=== PATIENT | female | born 1960 | race Caucasian/White ===

== ENCOUNTER 2017-04-17 13:53 | Emergency (ER) | payer MEDICARE, MEDICAID ==
[2017-04-17] MEDS ORDERED: IBUPROFEN 800 MG TABLET PO ONE (14:58)
[2017-04-17] MEDS ORDERED: CEPHALEXIN 500 MG CAPSULE PO ONE (14:59)
[2017-04-17] MEDS ORDERED: CIPROFLOXACIN HCL/DEXAMETH OTIC DROP 7.5 ML AU ONE (14:59)
--- NOTE | 2017-04-17 15:04 | ER Document Report ---
HPI - HPI Patient complains to provider of: ear pain, foot pain Pain Level: 1 Context: Patient is a 57-year-old female who presents emergency department with a chief complaint of bilateral ear congestion with right sided ear pain. She states this started on Wednesday of this week. She denies any fevers, chills, sharp stabbing pain, drainage, bleeding. She admits to having sinus congestion and nonproductive cough. She denies any loss of hearing but states it is difficult here because she feels like her ears are clogged. She denies any history of significant cerumen impaction requiring frequent irrigation. She states that she did utilize [id number] earwax treatment without any significant improvement. Her other complaint today is regarding her left foot. She admits to history of venous stasis and follows with Dr. Gomez she admits to redness on the top of her foot with pain with walking. She has been taking Tylenol and Motrin at home. States that she was supposed to follow-up with Dr. Gomez but has not had transportation to get there. Otherwise she denies any purulent drainage, pain at the bottom of her foot. Patient does not have primary care in the area. - EENT EENT: REPORTS: Eye problems - watery eyes - RESPIRATORY Respiratory: REPORTS: Coughing Past Medical History - Social History Smoking Status: Never Smoker Chew tobacco use (# tins/day): No Frequency of alcohol use: None Drug Abuse: None Family History: Reviewed & Not Pertinent Patient has suicidal ideation: No Patient has homicidal ideation: No - Past Medical History Cardiac Medical History: Reports: Hx Atrial Fibrillation Neurological Medical History: Reports: Hx Seizures Renal/ Medical History: Denies: Hx Peritoneal Dialysis Past Surgical History: Reports: Hx Appendectomy, Hx Hysterectomy, Hx Tubal Ligation - Immunizations Hx Diphtheria, Pertussis, Tetanus Vaccination: Yes Vertical Provider Document - CONSTITUTIONAL Agree With Documented VS: Yes Notes: PHYSICAL EXAM GENERAL: Alert, interacts well. HEENT: NCAT, pale conjunctiva, extraocular movements intact, pupils PERRL. external ear normal, no evidence of external auditory canal blood, cerumen impaction, but presence of bilateral external canal swelling and purulent drainage, TM intact without evidence of effusion, bulging, injection, MMM, Uvula midline. Airway patent. No evidence of tonsillar enlargement, peritonsillar abscess, retropharyngeal abscess. LUNGS: Clear to auscultation bilaterally, no wheezes, rales, or rhonchi. No respiratory distress. HEART: Regular rate and rhythm. No murmurs, gallops, or rubs. ABDOMEN: Soft, nondistended, nontender. No guarding, rebound, or rigidity.. Bowel sounds present in all 4 quadrants. EXTREMITIES: Moves all 4 extremities spontaneously. No edema, radial and dorsalis pedis pulses 2/4 bilaterally. No cyanosis. NEUROLOGICAL: Alert and oriented x4. Normal speech. PSYCH: Normal affect, normal mood. SKIN: Warm, dry, normal turgor. Left lower extremity with mild pitting edema and erythema overlying the volar surface of the left foot without purulent drainage, mild tenderness to palpation - INFECTION CONTROL TRAVEL OUTSIDE OF THE [place] IN LAST 30 DAYS: No - RESPIRATORY O2 Sat by Pulse Oximetry: 97 Course - Re-evaluation Re-evalutation: 04/17/17 15:59 Patient is a 57-year-old female is hemodynamically stable, no acute distress and afebrile. Her chief complaint is consistent with bilateral otitis externa without evidence of tympanic membrane perforation. Will treat topically with Ciprodex and instruction to follow-up with ear nose and throat this week. Regarding her foot x-ray does not show any evidence of underlying developing osteomyelitis. Will treat cellulitis with oral keflex and instruction to follow -up with Dr. Gomez this week. Patient and daughter present at the bedside expresses understanding, all questions were answered, and everyone agreeable with plan. - Vital Signs Vital signs: Temp Pulse Resp BP Pulse Ox 97.6 F 60 16 139/77 H 97 04/17/17 14:12 04/17/17 14:12 04/17/17 14:12 04/17/17 14:12 04/17/17 14:12 Discharge - Discharge Clinical Impression: Venous stasis dermatitis of left lower extremity Otitis externa Qualifiers: Otitis externa type: unspecified type Chronicity: acute Laterality: bilateral Qualified Code(s): H60.503 - Unspecified acute noninfective otitis externa, bilateral Cellulitis Qualifiers: Site of cellulitis: extremity Site of cellulitis of extremity: lower extremity Laterality: left Qualified Code(s): L03.116 - Cellulitis of left lower limb Condition: Good Disposition: HOME, SELF-CARE Instructions: Using Ear Drops with a Wick ([facility]), Acetaminophen, Otitis Externa ([facility]), Cellulitis ([facility]) Additional Instructions: -Please take the Keflex as directed and complete the course, this is for your foot and concern for infection of the skin. -Please use the drops as directed, 3 drops to both ears twice a day for 7 days -Follow up with Dr. Cheney on Wednesday and mention that the ear emilie are in. if they fall out before you see him, its okay. Continue to use the drops as directed. -Follow up with Dr Gomez this week regarding your foot Prescriptions: Cephalexin Monohydrate [Keflex 500 mg Capsule] 500 mg PO BID 5 Days capsule Referrals: ADRIEN CHENEY DO [ASSOCIATE] - 04/19/17 (Ear nose and throat doctor) JANICE MORENO MD [COMMUNITY BASED STAFF] - Follow up in 1 week BREONNA GOMEZ MD [ACTIVE STAFF] - Follow up in 3-5 days
--- NOTE | 2017-04-17 16:12 | RADIOLOGY REPORT (SQ) ---
EXAM DESCRIPTION: FOOT LEFT 2 VIEWS COMPLETED DATE/TIME: 04/17/2017 4:00 pm REASON FOR STUDY: h/o venous stasis w/ tenderness, red and swelling COMPARISON: None. NUMBER OF VIEWS: Two views. TECHNIQUE: AP and lateral radiographic images acquired of the left foot. LIMITATIONS: None. FINDINGS: MINERALIZATION: Osteopenia. BONES: No acute fracture or dislocation. No worrisome bone lesions. Calcaneal enthesopathy is prese nt. JOINTS: No effusions. SOFT TISSUES: No soft tissue swelling. No foreign body. OTHER: No other significant finding. IMPRESSION: Osteopenia and calcaneal enthesopathy. No acute findings. TECHNICAL DOCUMENTATION: JOB ID: [id number] [employer]- All Rights Reserved Reading location - IP/workstation name: [email or web address]
[2017-04-17 17:04] VITALS: BP 112/66
== END 2017-04-17 17:04 | disposition home or self-care (01) ==
LOC: ER 13:53
DX: H60.503 Unspecified acute noninfective otitis externa, bilateral (principal); H92.01 Otalgia, right ear; R09.81 Nasal congestion; R05 Cough; I87.2 Venous insufficiency (chronic) (peripheral); L03.116 Cellulitis of left lower limb
CPT/HCPCS: 99283; 73620; A9270 ×2; J3490

== ENCOUNTER 2017-04-23 11:04 | Emergency (ER) | payer MEDICARE, MEDICAID ==
--- NOTE | 2017-04-23 12:21 | ER Document Report ---
HPI - HPI Patient complains to provider of: Ear infection Onset: Last week Pain Level: Denies Context: Patient states she was recently treated for otitis externa and had earwax placed in bilateral ears. Patient states that she is almost done with the medication and the emilie have not fallen out. Patient is here to have the earwax removed. Patient denies any ear pain. Associated Symptoms: denies: Fever Exacerbated by: Denies Relieved by: Denies Similar symptoms previously: No Recently seen / treated by doctor: Yes - ROS ROS below otherwise negative: Yes Systems Reviewed and Negative: Yes All other systems reviewed and negative - EENT EENT: REPORTS: Ear Pain - Ear drainage - DERM Skin Color: Normal Skin Problems: None Past Medical History - General Information source: Patient - Social History Smoking Status: Never Smoker Chew tobacco use (# tins/day): No Frequency of alcohol use: None Drug Abuse: None Lives with: Family Family History: Reviewed & Not Pertinent Patient has suicidal ideation: No Patient has homicidal ideation: No - Past Medical History Cardiac Medical History: Reports: Hx Atrial Fibrillation, Hx Hypercholesterolemia Neurological Medical History: Reports: Hx Seizures Renal/ Medical History: Denies: Hx Peritoneal Dialysis Past Surgical History: Reports: Hx Appendectomy, Hx Cardiac Surgery - pacemaker , Hx Hysterectomy, Hx Tubal Ligation - Immunizations Hx Diphtheria, Pertussis, Tetanus Vaccination: Yes Vertical Provider Document - CONSTITUTIONAL Agree With Documented VS: Yes Exam Limitations: No Limitations General Appearance: WD/WN, No Apparent Distress - INFECTION CONTROL TRAVEL OUTSIDE OF THE [place] IN LAST 30 DAYS: No - HEENT HEENT: Atraumatic, Normocephalic. negative: Pharyngeal Exudate, Pharyngeal Tenderness, Pharyngeal Erythema Notes: Discharge overlying bilateral TM, hearing normal to left ear. No mastoid tenderness or swelling. - NECK Neck: Normal Inspection, Supple - RESPIRATORY Respiratory: Breath Sounds Normal, No Respiratory Distress O2 Sat by Pulse Oximetry: 95 - CARDIOVASCULAR Cardiovascular: Regular Rate, Regular Rhythm - BACK Back: Normal Inspection - MUSCULOSKELETAL/EXTREMETIES Musculoskeletal/Extremeties: MAEW - NEURO Level of Consciousness: Awake, Alert, Appropriate - DERM Integumentary: Warm, Dry Course - Re-evaluation Re-evalutation: 04/23/17 12:19 Ear emilie removed from bilateral ears. Patient encouraged to follow-up with ENT doctor for further evaluation. Patient still has 2 more days left of antibiotic eardrops. - Vital Signs Vital signs: Temp Pulse Resp BP Pulse Ox 98.5 F 60 16 129/68 H 95 04/23/17 11:14 04/23/17 11:14 04/23/17 11:14 04/23/17 11:14 04/23/17 11:14 Discharge - Discharge Clinical Impression: encounter for ear wick removal Condition: Stable Disposition: HOME, SELF-CARE Instructions: Otitis Externa ([facility]) Additional Instructions: Return immediately for any new or worsening symptoms Followup with your primary care provider, call tomorrow to make a followup appointment Follow-up with an ear nose and throat doctor this week for recheck Finish your antibiotics as previously prescribed Referrals: BETTY,NO [Primary Care Provider] - Follow up as needed [facility] [Provider Group] - Follow up as needed [facility] [Provider Group] - Follow up as needed [facility] [Provider Group] - Follow up in 3-5 days
[2017-04-23 12:44] VITALS: BP 130/67
== END 2017-04-23 12:42 | disposition home or self-care (01) ==
LOC: ER 11:04
DX: T16.2XXA Foreign body in left ear, initial encounter (principal); T16.1XXA Foreign body in right ear, initial encounter; H60.93 Unspecified otitis externa, bilateral; I48.91 Unspecified atrial fibrillation; E78.00 Pure hypercholesterolemia, unspecified; X58.XXXA Exposure to other specified factors, initial encounter
CPT/HCPCS: 99282

== ENCOUNTER 2017-04-29 16:17 | Emergency (ER) | payer MEDICARE, MEDICAID ==
--- NOTE | 2017-04-29 16:43 | ER Document Report ---
ED Animal Bite - General Chief Complaint: Dog Bite Stated Complaint: DOG BITE Time Seen by Provider: 04/29/17 16:27 Mode of Arrival: Ambulatory Information source: Patient, Relative TRAVEL OUTSIDE OF THE [place] IN LAST 30 DAYS: No - HPI Patient complains to provider of: right forearm, right index abrasions Severity of injury: Bitten Onset: Just prior to arrival Quality of pain: Achy Pain Level: 2 Severity: Mild Context of attack: Other Summary of what happened: pacobull she has watched for 4 years grabbed her smaller dog on the cough and pt went to break it up and the dog bit at pt. Type of animal: Dog Appearance of animal: Appeared well Animal's immunizations: Not immunized - but has been in their household for 4 years w/o issues. Notes: Tetanus is reported to be up-to-date within the last year. 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 Patient states that her son is coming to picking supervisor the dog and they are going to monitor it for the next 10 days. Daughter is a director of veterans affairs who is also with mother at the visit today. Denies any headache, fever, neck pain, URI, sore throat, chest pain, palpitations, syncope, cough, shortness of breath, wheeze, dyspnea, abdominal pain, nausea/vomiting/diarrhea, urinary retention, dysuria, hematuria, loss of control of bowel or bladder, numbness/tingling, saddle anesthesia, muscle paralysis/weakness, or rash. - Related Data Allergies/Adverse Reactions: morphine Allergy (Mild, Verified 04/29/17 16:18) Hives carbamazepine [From Tegretol] Allergy (Verified 04/29/17 16:18) ibuprofen [From Motrin] Allergy (Verified 04/29/17 16:18) sulfamethoxazole [From Bactrim] Allergy (Verified 04/29/17 16:18) trimethoprim [From Bactrim] Allergy (Verified 04/29/17 16:18) Past Medical History - Social History Smoking Status: Unknown if Ever Smoked Family History: Reviewed & Not Pertinent - Past Medical History Cardiac Medical History: Reports: Hx Atrial Fibrillation, Hx Hypercholesterolemia Neurological Medical History: Reports: Hx Seizures Renal/ Medical History: Denies: Hx Peritoneal Dialysis Past Surgical History: Reports: Hx Appendectomy, Hx Cardiac Surgery - pacemaker , Hx Hysterectomy, Hx Tubal Ligation - Immunizations Hx Diphtheria, Pertussis, Tetanus Vaccination: Yes Review of Systems - Review of Systems -: Yes All other systems reviewed and negative Physical Exam - Vital signs Vitals: Temp Pulse Resp BP Pulse Ox 97.7 F 60 18 144/79 H 96 04/29/17 16:22 04/29/17 16:22 04/29/17 16:22 04/29/17 16:22 04/29/17 16:22 - Notes Notes: PHYSICAL EXAMINATION: GENERAL: Well-appearing, well-nourished and in no acute distress. A&Ox4 LUNGS: Breath sounds clear to auscultation bilaterally and equal. No wheezes rales or rhonchi. HEART: Regular rate and rhythm without murmurs, rubs, gallops. Musculoskeletal: Rt forearm/hand: FROM to passive/active. Strength 5+/5. N/V intact distal. + mild tenderness to the distal right index finger. + mild tenderness mid forearm. Extremities: No cyanosis, clubbing, or edema b/l. Peripheral pulses 2+. Capillary refill less than 3 seconds. NEUROLOGICAL: Cranial nerves grossly intact. Normal speech, normal gait. Normal sensory, motor exams PSYCH: Normal mood, normal affect. SKIN: 3 small 0.25cm abrasions noted to the skin without deep puncture of the dorsal forearm. + small 0.2cm abrasion to the distoposterior right index. No obvious foreign body. + ecchymosis to the posterior forearm. Course - Re-evaluation Re-evalutation: 04/29/17 17:15 Patient is an afebrile, well-hydrated, 57-year-old female who presents to the ED with superficial dog bite abrasions. Vitals are stable. PE is otherwise unremarkable for any neurovascular compromise, obvious tendon/ligament rupture, obvious fracture/dislocation, cyanosis, or septic joint. X-ray was unremarkable for any acute pathology. Wound was thoroughly irrigated and cleansed and a wound dressing placed. Wound instructions reviewed. Tetanus is up-to-date. Thoroughly reviewed the risks and benefits as well as the potential cost of the rabies vaccination protocol. Patient's daughter is a director of veterans affairs and states that they would prefer to monitor for 10 days the dog's behavior rather than getting/starting the rabies protocol. Patient and daughter are aware that patient needs to return immediately if any other acute changes or changes in the dog's health. I will send her home with a prescription for Augmentin to take as directed. Conservative measures otherwise for symptoms. Recheck with your PCM in 3-5 days. Return to the ED with any worsening/concerning symptoms otherwise reviewed discharge. Patient & daughter in agreement. - Vital Signs Vital signs: Temp Pulse Resp BP Pulse Ox 97.7 F 60 18 144/79 H 96 04/29/17 16:22 04/29/17 16:22 04/29/17 16:22 04/29/17 16:22 04/29/17 16:22 Discharge - Discharge Clinical Impression: Dog bite Qualifiers: Encounter type: initial encounter Qualified Code(s): W54.0XXA - Bitten by dog, initial encounter Condition: Stable Disposition: HOME, SELF-CARE Additional Instructions: Keep the skin clean Wash with soap and water Tylenol/ibuprofen if needed Triple antibiotic ointment daily Take medication as directed Monitor for any worsening symptoms Epsom salt soaks may help Monitor/isolate the dog for 10 days and watch closely for any health changes. Get the dog's vaccines up to date when able. Recheck with your PCM in 3-5 days Return to the ED with any worsening symptoms and/or development of fever, headache, chest pain, palpitations, syncope, shortness of breath, trouble breathing, abdominal pain, n/v/d, abscess, purulent discharge, red streaks, worsening swelling, or other worsening symptoms that are concerning to you. Prescriptions: Amox Tr/Potassium Clavulanate [Augmentin 875-125 Tablet] 1 tab PO BID 10 Days # 20 tablet Forms: Elevated Blood Pressure Referrals: [facility] [Provider Group] - Follow up as needed [facility] [Provider Group] - Follow up as needed
--- NOTE | 2017-04-29 17:08 | RADIOLOGY REPORT (SQ) ---
EXAM DESCRIPTION: FOREARM RIGHT COMPLETED DATE/TIME: 04/29/2017 4:49 pm REASON FOR STUDY: dog bite COMPARISON: None. NUMBER OF VIEWS: Two views. TECHNIQUE: Two radiographic images acquired of the right forearm, including elbow and wrist in at le ast one projection. LIMITATIONS: None. FINDINGS: MINERALIZATION: Normal. BONES: No acute fracture. No worrisome bone lesions. SOFT TISSUES: No obvious swelling or foreign body. OTHER: No other significant finding. IMPRESSION: NEGATIVE STUDY OF THE RIGHT FOREARM. NO RADIOGRAPHIC EVIDENCE OF ACUTE INJURY. TECHNICAL DOCUMENTATION: JOB ID: [id number] [employer]- All Rights Reserved Reading location - IP/workstation name: [email or web address] [id number]
--- NOTE | 2017-04-29 17:12 | RADIOLOGY REPORT (SQ) ---
EXAM DESCRIPTION: HAND RIGHT 3 VIEWS COMPLETED DATE/TIME: 04/29/2017 4:49 pm REASON FOR STUDY: dog bite COMPARISON: Right forearm two views same date EXAM PARAMETERS: NUMBER OF VIEWS: Three views. TECHNIQUE: AP, lateral and oblique radiographic images acquired of the right hand. LIMITATIONS: None. FINDINGS: MINERALIZATION: Normal. BONES: No acute fracture or dislocation. No worrisome bone lesions. 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 SOFT TISSUES: No soft tissue swelling. No foreign body. OTHER: No other significant finding. IMPRESSION: NEGATIVE STUDY OF THE RIGHT HAND. NO RADIOGRAPHIC EVIDENCE OF ACUTE INJURY. TECHNICAL DOCUMENTATION: JOB ID: [id number] [employer]- All Rights Reserved Reading location - IP/workstation name: [email or web address]
[2017-04-29 17:39] VITALS: BP 117/74
== END 2017-04-29 17:39 | disposition home or self-care (01) ==
LOC: ER 16:17
DX: S60.470A Other superficial bite of right index finger, initial encounter (principal); S50.871A Other superficial bite of right forearm, initial encounter; W54.0XXA Bitten by dog, initial encounter; Y93.K9 Activity, other involving animal care; Z88.5 Allergy status to narcotic agent; Z88.6 Allergy status to analgesic agent; Z88.1 Allergy status to other antibiotic agents
CPT/HCPCS: 99283

== ENCOUNTER 2017-05-17 22:57 | Emergency (ER) | payer MEDICARE, MEDICAID ==
[2017-05-18 01:24] LABS: ABSOLUTE BASOPHILS # (AUTO) 0.1 10^3/uL (0.0-0.2); ABSOLUTE LYMPHOCYTES (AUTO) 1.2 10^3/uL (0.5-4.7); ABSOLUTE MONOCYTES (AUTO) 0.6 10^3/uL (0.1-1.4); ABSOLUTE NEUT (AUTO) 8.2 10^3/uL (1.7-8.2); BASOPHILS % (AUTO) 0.6 % (0-2); EOSINOPHILS % (AUTO) 0.1 % (0-6); HEMATOCRIT 42.9 % (36.0-47.0); HEMOGLOBIN 14.6 g/dL (12.0-15.5); LYMPHOCYTES % (AUTO) 11.9 % (13-45); MEAN CORPUSCULAR HEMOGLOBIN 28.7 pg (27.0-33.4); MEAN CORPUSCULAR HGB CONC 33.9 g/dL (32.0-36.0); MEAN CORPUSCULAR VOLUME 85 fl (80-97); MONOCYTES % (AUTO) 5.8 % (3-13); PLATELET COUNT 122 10^3/uL (150-450); RED BLOOD COUNT 5.07 10^6/uL (3.72-5.28); RED CELL DISTRIBUTION WIDTH 14.5 % (11.5-14.0); SEGMENTED NEUTROPHILS % (AUTO) 81.6 % (42-78); TOTAL CELLS COUNTED % (AUTO) 100 %
[2017-05-18 01:26] LABS: APPEARANCE,URINE CLOUDY; BILIRUBIN,URINE NEGATIVE (NEGATIVE); COLOR,URINE YELLOW; GLUCOSE, URINE NEGATIVE (NEGATIVE); KETONES,URINE NEGATIVE (NEGATIVE); LEUKOCYTE ESTERASE,URINE LARGE (NEGATIVE); NITRITE,URINE NEGATIVE (NEGATIVE); PROTEIN,URINE 100 mg/dL (NEGATIVE); URINE SPECIFIC GRAVITY 1.016; UROBILINOGEN,URINE NEGATIVE mg/dL (<2.0)
[2017-05-18 01:42] LABS: ALANINE AMINOTRANSFERASE 28 U/L (9-52); ALKALINE PHOSPHATASE 89 U/L (38-126); ANION GAP 6 (5-19); ASPARTATE AMINO TRANSFERASE 18 U/L (14-36); BILIRUBIN,DIRECT 0.3 mg/dL (0.0-0.4); BILIRUBIN,TOTAL 0.5 mg/dL (0.2-1.3); BLOOD UREA NITROGEN 12 mg/dL (7-20); CALCIUM 9.7 mg/dL (8.4-10.2); CARBON DIOXIDE 27 mmol/L (22-30); CHLORIDE 108 mmol/L (98-107); GLUCOSE 115 mg/dL (75-110); LIPASE 37.8 U/L (23-300); POTASSIUM 4.2 mmol/L (3.6-5.0); SODIUM 140.8 mmol/L (137-145); TOTAL PROTEIN 6.5 g/dL (6.3-8.2)
[2017-05-18] MEDS ORDERED: CEPHALEXIN 500 MG CAPSULE PO ONE (01:44)
--- NOTE | 2017-05-18 02:07 | ER Document Report ---
ED General - General Chief Complaint: Abdominal Pain Stated Complaint: CRAMPING Time Seen by Provider: 05/18/17 01:00 Notes: Patient is a 57-year-old female with medical history as recorded who presents with 2 days of lower abdominal cramping, dysuria, urinary frequency and bilateral flank pain. She states that she is also felt somewhat fatigued but denies any fever, vomiting or body aches. She states this feels somewhat similar to when she has had urinary tract infections in the past. She has not noted that he seems to improve or worsen her pain. She does describe the pain as a cramping, aching pain to the affected areas. Pain is overall been unchanged since onset. She has not seen her primary care doctor regarding today 's concerns. TRAVEL OUTSIDE OF THE [place] IN LAST 30 DAYS: No - Related Data Allergies/Adverse Reactions: morphine Allergy (Mild, Verified 04/29/17 16:18) Hives carbamazepine [From Tegretol] Allergy (Verified 04/29/17 16:18) ibuprofen [From Motrin] Allergy (Verified 04/29/17 16:18) sulfamethoxazole [From Bactrim] Allergy (Verified 04/29/17 16:18) trimethoprim [From Bactrim] Allergy (Verified 04/29/17 16:18) Past Medical History - General Information source: Patient - Social History Smoking Status: Never Smoker Frequency of alcohol use: None Drug Abuse: None Lives with: Alone Family History: Reviewed & Not Pertinent - Past Medical History Cardiac Medical History: Reports: Hx Atrial Fibrillation, Hx Hypercholesterolemia Neurological Medical History: Reports: Hx Seizures Renal/ Medical History: Denies: Hx Peritoneal Dialysis Past Surgical History: Reports: Hx Appendectomy, Hx Cardiac Surgery - pacemaker , Hx Hysterectomy, Hx Tubal Ligation - Immunizations Hx Diphtheria, Pertussis, Tetanus Vaccination: Yes Review of Systems - Review of Systems Notes: Constitutional: Negative for fever. HENT: Negative for sore throat. Eyes: Negative for visual changes. Cardiovascular: Negative for chest pain. Respiratory: Negative for shortness of breath. Gastrointestinal: Positive for abdominal pain Genitourinary: Positive for dysuria. Musculoskeletal: Negative for back pain. Skin: Negative for rash. Neurological: Negative for headaches, weakness or numbness. 10 point ROS negative except as marked above and in HPI. Physical Exam - Vital signs Vitals: Temp Pulse Resp BP Pulse Ox 98.6 F 61 18 140/74 H 96 05/17/17 22:57 05/17/17 22:57 05/17/17 22:57 05/17/17 22:57 05/17/17 22:57 Interpretation: Normal Notes: PHYSICAL EXAMINATION: GENERAL: Well-appearing, well-nourished and in no acute distress. HEAD: Atraumatic, normocephalic. EYES: Pupils equal round and reactive to light, extraocular movements intact, sclera anicteric, conjunctiva are normal. ENT: nares patent, oropharynx clear without exudates. Moist mucous membranes. NECK: Normal range of motion, supple without lymphadenopathy LUNGS: Breath sounds clear to auscultation bilaterally and equal. No wheezes rales or rhonchi. HEART: Regular rate and rhythm without murmurs ABDOMEN: Soft, mild suprapubic abdominal tenderness, bilateral CVA tenderness, no other localized areas of tenderness. Normoactive bowel sounds. No guarding , no rebound. No masses appreciated. EXTREMITIES: Normal range of motion, no pitting or edema. No cyanosis. NEUROLOGICAL: No focal neurological deficits. Moves all extremities spontaneously and on command. PSYCH: Normal mood, normal affect. SKIN: Warm, Dry, normal turgor, no rashes or lesions noted. Course - Re-evaluation Re-evalutation: 05/18/17 02:06 Presentation is most consistent with acute pyelonephritis. Laboratories do demonstrate a large amount of white blood cells in the urine as well as bacteria. CVA tenderness is present on exam. The remainder laboratories are relatively unremarkable without evidence of renal dysfunction. I do not suspect an acute appendicitis, biliary pathology, pancreatitis, intra-abdominal abscess, or tubo-ovarian abscess based on history and examination. Patient is able to tolerate oral intake without difficulty. Will be discharged home on 7 day course of cephalexin. A urine culture has been sent. Strict return precautions and follow-up recommendations have been discussed at length. - Vital Signs Vital signs: Temp Pulse Resp BP Pulse Ox 98.6 F 55 L 16 136/70 H 97 05/17/17 22:57 05/18/17 02:24 05/18/17 02:24 05/18/17 02:24 05/18/17 02:24 - Laboratory Result Diagrams: 05/18/17 01:10 05/18/17 01:10 Laboratory results interpreted by me: 04/02/18 04/03/18 04/03/18 23:16 01:10 01:10 RDW 14.5 H Plt Count 122 L Seg Neutrophils % 81.6 H Lymphocytes % 11.9 L Chloride 108 H Glucose 115 H Urine Protein 100 H Urine Blood MODERATE H Ur Leukocyte Esterase LARGE H Discharge - Discharge Clinical Impression: Pyelonephritis Condition: Good Disposition: HOME, SELF-CARE Additional Instructions: You have been diagnosed with a condition called pyelonephritis which is an infection involving your kidneys and bladder. You have been given a dose of antibiotics here in the emergency department to help begin to treat this infection. Your also being sent home on antibiotics. Please start taking these later on today when you fill the prescription. Complete the course even if you feel better. Please return if you have persistent vomiting, pass out, have worsening pain, become unable to tolerate fluids, or have any other symptoms that are concerning to you. Please follow-up with your primary care physician in the next 24-48 hours. Prescriptions: Cephalexin Monohydrate [Keflex 500 mg Capsule] 500 mg PO Q6H 7 Days capsule Referrals: ADALID JAMIL MD [Primary Care Provider] - Follow up in 3-5 days
[2017-05-18 02:26] VITALS: BP 136/70
== END 2017-05-18 02:23 | disposition home or self-care (01) ==
LOC: ER 22:57
DX: N12 Tubulo-interstitial nephritis, not specified as acute or chronic (principal); R53.83 Other fatigue; Z88.5 Allergy status to narcotic agent; Z88.6 Allergy status to analgesic agent; Z88.1 Allergy status to other antibiotic agents
CPT/HCPCS: 36415; 80053; 81001; 83690; 85025; 87086; 99284

== ENCOUNTER → 2017-05-27 | Outpatient (CLI) | payer MEDICARE, MEDICAID ==
--- NOTE | 2017-05-27 10:11 | WOMENS IMAGING REPORT ---
EXAM DESCRIPTION: BONE DENSITY HIP/SPINE COMPLETED DATE/TIME: 05/27/2017 8:37 am REASON FOR STUDY: OSTEOPOROSIS Z12.31 ENCNTR SCREEN MAMMOGRAM FOR MALIGNANT NEOPLASM OF JARON M81.0 AGE-RELATED OSTEOPOROSIS W/O CURRENT PATHOLOGICAL FRAC COMPARISON: None. TECHNIQUE: Dual-Energy X-ray Absorptiometry (DEXA) of the AP Spine and Hip. LIMITATIONS: None. FINDINGS: LUMBAR SPINE: The bone mineral density (BMD) measured from L1-L4 in the AP projection correlates with a T-score of 0.3, which is normal as defined by the World Health Organization. HIP: The bone mineral density (BMD) measured in the left hip correlates with a T-score of 0.3, which is no rmal as defined by the World Health Organization. IMPRESSION: 1. LUMBAR SPINE: Normal 2. HIP: Normal COMMENT: The World Health Organization defines low BMD as follows: T-score: Normal: Greater than -1.0 Osteopenia: Between -1.0 and -2.5 Osteoporosis: Less than -2.5 without fractures Established osteoporosis: Less than -2.5 with fractures In general, you may wish to consider: Diagnosis Treatment Follow-up DEXA Normal BMD Prevention 2-3 years Osteopenia Prevention/Therapy 1-2 years Osteoporosis Therapy Yearly TECHNICAL DOCUMENTATION: JOB ID: [id number] [employer]- All Rights Reserved Reading location - IP/workstation name: [email or web address]
--- NOTE | 2017-05-28 12:33 | WOMENS IMAGING REPORT ---
EXAM DESCRIPTION: 3D SCREENING MAMMO BILAT COMPLETED DATE/TIME: 05/27/2017 8:37 am REASON FOR STUDY: SCREENING MAMMO Z12.31 ENCNTR SCREEN MAMMOGRAM FOR MALIGNANT NEOPLASM OF JARON M81. 0 AGE-RELATED OSTEOPOROSIS W/O CURRENT PATHOLOGICAL FRAC COMPARISON: Multiple since 2011 TECHNIQUE: Standard craniocaudal and mediolateral oblique views of each breast recorded using digita l acquisition and breast tomosynthesis. LIMITATIONS: None. FINDINGS: No masses, calcifications or architectural distortion. No areas of suspicion. Read with the assistance of CAD. .[facility] - R2 Cenova Version 1.3 .[facility] - R2 Cenova Version 1.3 .[facility] - R2 Cenova Version 2.4 .[facility] - R2 Cenova Version 2.4 .[facility] - R2 Director Of Blood Version 9.2 IMPRESSION: NORMAL MAMMOGRAM. BIRADS 1. BREAST DENSITY: c. The breasts are heterogeneously dense, which may obscure small masses. BIRAD: 1 NEGATIVE RECOMMENDATION: ROUTINE SCREENING Please continue bilateral screening tomosynthesis in May 2018 COMMENT: The patient has been notified of the results by letter per SA requirements. Additional no tification policies are in place for contacting patient with suspicious or incomplete findings. Quality ID #225: The [employer] recommends an annual screening mammogram for women aged 40 years or over. This facility utilizes a reminder system to ensure that all patients receive reminder letters, and/or direct phone calls for appointments. This includes reminders for routine scr eening mammograms, diagnostic mammograms, or other Breast Imaging Interventions when appropriate. Th is patient will be placed in the appropriate reminder system. The [employer] (ACR) has developed recommendations for screening MRI of the breast s in certain patient populations, to be used in conjunction with mammography. Breast MRI surveillanc e may be appropriate for women with more than 20% lifetime risk of developing breast cancer as deter mined by genetic testing, significant family history of the disease, or history of mantle radiation f or Hodgkins Disease. ACR Practice Guidelines 2008. DBT Technology DBT is a type of tomographic mammography. With conventional mammography, overlapping breast tissue ma y make lesions difficult to detect, even with good compression. DBT uses an x-ray tube that rotates a round the breast, taking images at different angles. These images are then combined to create thin sl ices of the breast that the radiologist can view as a 3D reconstruction. The [employer] unit can perform full-field digital mammograms (2D imaging); or DBT (3D imaging); or both, in a combination mode that quickly performs both the mammogram and the tomosynthesis scan while the breast is still compressed. PQRS 6045F: Fluoroscopic imaging is not utilized for breast tomosynthesis. TECHNICAL DOCUMENTATION: FINDING NUMBER: (1) ASSESSMENT: (1) JOB ID: [id number] [employer]- All Rights Reserved Reading location - IP/workstation name: [email or web address]-[email or web address]
== END ==
LOC: WI 07:39
PROVIDERS: ATTEND Family Medicine
DX: Z12.31 Encounter for screening mammogram for malignant neoplasm of breast (principal); M81.0 Age-related osteoporosis without current pathological fracture
CPT/HCPCS: 77063; 77067; 77080

== ENCOUNTER → 2017-06-15 | Outpatient (CLI) | payer MEDICARE, MEDICAID ==
--- NOTE | 2017-06-17 08:02 | EEG PRO FEE REPORT ---
EEG INTERPRETATION PATIENT NAME: JUSTICE BENDER ROOM#: ORDER#: [id number] DATE OF STUDY: 06/15/2017 : 1960 REFERRING MD: ARNIE MARTINEZ M.D. DIAGNOSIS: Epilepsy REPORT The background activity of this patient is slightly slow at 6-7 Hz for the most part but there is associated muscle artifact belying the fact the patient is at drowsy or asleep. No hyperventilation elicits moderate build up and there are no further focal slowing its just bilaterally symmetrically 5-6 Hz theta particularly posteriorly anteriorly there is a lot more motion artifact. No EKG artifact is seen or amplitude asymmetry or ictal discharges. IMPRESSION Slightly slow EEG indicative of widespread cerebral dysfunction such as from a toxic or metabolic or other cerebral dysfunction. INTERPRETING PHYSICIAN: ESTEFANY SOLORIO M.D. /: MTEFFT TT: [id number] ID: [id number] /: [id number] TD: [id number] JOB: [id number] cc:Scott VIERA M.D. >
== END ==
LOC: NEURO 11:54
PROVIDERS: ATTEND Pediatrics
DX: G40.909 Epilepsy, unspecified, not intractable, without status epilepticus (principal)
CPT/HCPCS: 95819

== ENCOUNTER 2017-12-07 14:38 | Emergency (ER) | payer MEDICARE, MEDICAID ==
--- NOTE | 2017-12-07 15:55 | ER Document Report ---
HPI - HPI Patient complains to provider of: Redness around the eyes Onset: Yesterday Onset/Duration: Gradual Quality of pain: Burning Pain Level: 2 Context: Patient complains of dry itchy red skin around bilateral eyes. Patient states she has had a recent yeast infection and is concerned that the yeast may have spread to her face. Patient also complains of rash to the left antecubital area. Patient does report recently going to her doctor's office and having labs drawn from the left arm and had a Band-Aid placed to the left arm as well. Associated Symptoms: Other - Skin rash Exacerbated by: Denies Relieved by: Denies Similar symptoms previously: No Recently seen / treated by doctor: Yes - ROS ROS below otherwise negative: Yes Systems Reviewed and Negative: Yes All other systems reviewed and negative - CONSTITUTIONAL Constitutional: DENIES: Fever, Chills - EENT EENT: REPORTS: Eye problems. DENIES: Congestion - NEURO Neurology: DENIES: Headache, Weakness - DERM Skin Color: Erythema Skin Problems: Rash Past Medical History - General Information source: Patient - Social History Smoking Status: Never Smoker Frequency of alcohol use: None Drug Abuse: None Occupation: None Family History: Reviewed & Not Pertinent - Past Medical History Cardiac Medical History: Reports: Hx Atrial Fibrillation, Hx Hypercholesterolemia Neurological Medical History: Reports: Hx Seizures Renal/ Medical History: Denies: Hx Peritoneal Dialysis Past Surgical History: Reports: Hx Appendectomy, Hx Cardiac Surgery - pacemaker , Hx Hysterectomy, Hx Tubal Ligation - Immunizations Hx Diphtheria, Pertussis, Tetanus Vaccination: Yes Vertical Provider Document - CONSTITUTIONAL Agree With Documented VS: Yes Exam Limitations: No Limitations General Appearance: WD/WN, No Apparent Distress - INFECTION CONTROL TRAVEL OUTSIDE OF THE [place] IN LAST 30 DAYS: No - HEENT HEENT: Atraumatic, Normocephalic Notes: Patient with yellow crusting to the eyelashes and periorbital erythema with dry flaking skin. - NECK Neck: Normal Inspection, Supple. negative: Lymphadenopathy-Left, Lymphadenopathy-Right - RESPIRATORY Respiratory: Breath Sounds Normal, No Respiratory Distress - CARDIOVASCULAR Cardiovascular: Regular Rate, Regular Rhythm - BACK Back: Normal Inspection - MUSCULOSKELETAL/EXTREMETIES Musculoskeletal/Extremeties: CHALINO HOBBS - NEURO Level of Consciousness: Awake, Alert, Appropriate Motor/Sensory: No Motor Deficit - DERM Integumentary: Warm, Dry, Rash - Erythematous ocular papular rash to left antecubital area that is in the shape of Band-Aid dressing. Patient with erythematous maculopapular skin lesions to face Course - Re-evaluation Re-evalutation: 12/07/17 15:52 Patient presents with what appears to be blepharitis and likely rosacea. Patient with what appears to be contact dermatitis to the left antecubital area that does look like the shape of the Band-Aid dressing. Patient does acknowledge that she did have a Band-Aid in this area. Patient encouraged to avoid use of this type of adhesive in the future. Patient encouraged to follow- up with her primary doctor for recheck as well as her informatics coordinator for any persistent problems. No proptosis, no pain with range of motion. No concern for orbital or preseptal cellulitis. - Vital Signs Vital signs: Temp Pulse Resp BP Pulse Ox 98.4 F 59 L 14 137/81 H 95 12/07/17 15:02 12/07/17 15:02 12/07/17 15:02 12/07/17 15:02 12/07/17 15:02 Discharge - Discharge Clinical Impression: Blepharitis of both eyes Qualifiers: Blepharitis type: unspecified type Eyelid: unspecified eyelid Qualified Code(s) : H01.003 - Unspecified blepharitis right eye, unspecified eyelid Contact dermatitis Qualifiers: Contact dermatitis type: unspecified Contact dermatitis trigger: unspecified trigger Qualified Code(s): L25.9 - Unspecified contact dermatitis, unspecified cause Condition: Stable Disposition: HOME, SELF-CARE Instructions: Contact Dermatitis ([facility]), Erythromycin ([facility]), Topical Steroid Cream or Ointment ([facility]) Additional Instructions: Return immediately for any new or worsening symptoms Followup with your primary care provider, call tomorrow to make a followup appointment Use of topical steroid cream only to the left arm area. Use [id number]-[id number] baby shampoo to wash your face and eyelid area. Apply warm compresses to the face for comfort Use artificial tears [id number]-igr-[id number] to help with dry eyes Follow up with your informatics coordinator for recheck Prescriptions: Erythromycin Base [Erythromycin] 1 applic OP QID #3.5 oint..gm. Triamcinolone Acetonide [Aristocort 0.1% Cream] 1 applic TP TID #30 gm Referrals: ADALID JAMIL MD [ACTIVE STAFF] - Follow up as needed OFFICE [facility] [Provider Group] - Follow up as needed
[2017-12-07 16:05] VITALS: BP 136/99
== END 2017-12-07 16:05 | disposition home or self-care (01) ==
LOC: ER 14:38
DX: L25.9 Unspecified contact dermatitis, unspecified cause (principal); H01.003 Unspecified blepharitis right eye, unspecified eyelid; H01.006 Unspecified blepharitis left eye, unspecified eyelid
CPT/HCPCS: 99282

== ENCOUNTER 2018-01-09 15:44 | Emergency (ER) | payer MEDICARE, MEDICAID ==
[2018-01-09] MEDS ORDERED: OXCARBAZEPINE 150 MG TABLET PO ONE (16:11)
[2018-01-09] MEDS ORDERED: LORAZEPAM INJ 2 MG/1 ML VIAL IV ONE (16:12)
--- NOTE | 2018-01-09 16:15 | ER Document Report ---
ED General - General Chief Complaint: Seizure Stated Complaint: SEIZURE Time Seen by Provider: 01/09/18 15:50 Notes: Patient is a 57-year-old female with seizure disorder that presents to the emergency department for chief complaint of seizure. Patient reports she was sitting in a chair in the living room, was looking at her phone, then had a witnessed seizure, from her son, the last less than 5 minutes. She has been off her medication for approximately 5 days, because she was staying with her son, and forgot to bring her medication with her, she is typically on Trileptal 300 mg twice daily. She states she did have urinary incontinence with this episode. She has not had a seizure like this in some time, but she is usually pretty compliant with her medications, she has had some staring spells since her last seizure like this. She denies having any head injury, she was sitting in a chair, denies having any neck pain. She is complaining of a mild headache at this time which is typical after her seizures according to the patient. Denies any numbness, tingling or weakness in any extremity. Patient also reports has been having decreased sleep, which she believes may have contributed to the seizure. Past Medical History: Seizure disorder, hyperlipidemia, depression, overactive bladder, sick sinus syndrome status post pacemaker Past Surgical History: Pacemaker placement Social History: Denies current tobacco, alcohol or illicit drug use. Family History: Reviewed and noncontributory for presenting illness Allergies: Reviewed, see documented allergy list. REVIEW OF SYSTEMS: Other than noted above, the 12 point review of systems was reviewed with the patient and were negative, all pertinent findings are included in the HPI. PHYSICAL EXAMINATION: Vital signs reviewed, nursing noted reviewed. GENERAL: Obese female, no acute distress HEAD: Atraumatic, normocephalic. EYES: Eyes appear normal, extraocular movements intact, sclera anicteric, conjunctiva are normal. ENT: nares patent, oropharynx clear without exudates. Moist mucous membranes. NECK: Normal range of motion, supple without lymphadenopathy LUNGS: Breath sounds clear to auscultation bilaterally and equal. No wheezes rales or rhonchi. HEART: Regular rate and rhythm without murmurs ABDOMEN: Soft, nontender, normoactive bowel sounds. No rebound, guarding, or rigidity. No masses appreciated. EXTREMITIES: Nontender, good range of motion, no pitting or edema. NEUROLOGICAL: No focal neurological deficits. Moves all extremities spontaneously Motor and sensory grossly intact on exam. PSYCH: Normal mood, normal affect. SKIN: Warm, Dry, normal turgor, no rashes or lesions noted on exposed skin TRAVEL OUTSIDE OF THE [place] IN LAST 30 DAYS: No - Related Data Allergies/Adverse Reactions: morphine Allergy (Mild, Verified 12/07/17 14:40) Hives carbamazepine [From Tegretol] Allergy (Verified 12/07/17 14:40) ibuprofen [From Motrin] Allergy (Verified 12/07/17 14:40) sulfamethoxazole [From Bactrim] Allergy (Verified 12/07/17 14:40) trimethoprim [From Bactrim] Allergy (Verified 12/07/17 14:40) Past Medical History - Social History Smoking Status: Current Every Day Smoker Family History: Reviewed & Not Pertinent Patient has suicidal ideation: No Patient has homicidal ideation: No - Past Medical History Cardiac Medical History: Reports: Hx Atrial Fibrillation, Hx Hypercholesterolemia Neurological Medical History: Reports: Hx Seizures Renal/ Medical History: Denies: Hx Peritoneal Dialysis Past Surgical History: Reports: Hx Appendectomy, Hx Cardiac Surgery - pacemaker , Hx Hysterectomy, Hx Tubal Ligation - Immunizations Hx Diphtheria, Pertussis, Tetanus Vaccination: Yes Physical Exam - Vital signs Vitals: Temp 99 F 01/09/18 16:03 Course - Re-evaluation Re-evalutation: Patient seen and examined vital signs reviewed. Patient was evaluated and treated as appropriate for the patient's presenting symptoms and complaint, with consideration of any critical or life threatening conditions that may be associated with their obtained history and exam as noted above. Patient was treated with oral carbamazepine 300 mg, her home dose, and 1 mg of IV Ativan The patient was re-evaluated and was stable, patient with known history of seizure disorder, with reason to have seizure, she was off her medication for almost a week, patient states she did recently fill her medications, she discussed to get home to where they are currently at, patient will arrange for transportation to get back to her home, to resume her medications. Evaluation was most consistent with seizure, in a patient with epilepsy. Plan of care was discussed with the patient at this point, after careful consideration I feel that that patient can be discharged from the emergency department, the patient was educated treatments and reasons to return to the emergency department based on their presumed diagnosis as noted above, they were advised to followup with a primary care physician in 2-3 days. Patient was agreeable to plan of care. *Note is created using voice recognition software and may contain spelling, syntax or grammatical errors. - Vital Signs Vital signs: Temp Pulse Resp BP Pulse Ox 99 F 19 132/80 H 98 01/09/18 16:03 01/09/18 17:01 01/09/18 17:01 01/09/18 17:01 - EKG Interpretation by Me Additional EKG results interpreted by me: EKG demonstrates sinus rhythm with a ventricular rate of 60 bpm, normal axis, normal intervals, no evidence of acute ischemia on this EKG, no prior ECG for comparison. Discharge - Discharge Clinical Impression: Seizure Condition: Stable Disposition: HOME, SELF-CARE Instructions: Seizure, Known Epileptic ([facility]) Additional Instructions: Please resume taking your home medications for seizure, and please follow-up with your primary care physician in 2-3 days, please call for appointment. If you have repeat seizure, or any numbness, weakness or tingling, please return to the emergency department. Prescriptions: Oxcarbazepine 300 mg PO BID #14 tablet Referrals: JANICE MORENO MD [Primary Care Provider] - Follow up in 3-5 days
[2018-01-09 17:06] VITALS: BP 132/80
--- NOTE | 2018-01-09 22:46 | EKG REPORT ---
SEVERITY:- NORMAL ECG - SINUS RHYTHM : Confirmed by: Yoly Frausto MD 09-Jan-2018 22:46:18
== END 2018-01-09 17:44 | disposition home or self-care (01) ==
LOC: ER 15:44
DX: R56.9 Unspecified convulsions (principal); R51 Headache; Z95.0 Presence of cardiac pacemaker; Z79.899 Other long term (current) drug therapy; F17.200 Nicotine dependence, unspecified, uncomplicated
CPT/HCPCS: 93005; 99284; 93010; J2060; A9270

== ENCOUNTER → 2018-09-02 | Outpatient (CLI) | payer MEDICARE, MEDICAID ==
--- NOTE | 2018-09-02 13:49 | WOMENS IMAGING REPORT ---
EXAM DESCRIPTION: 3D SCREENING MAMMO BILAT COMPLETED DATE/TIME: 09/02/2018 8:41 am REASON FOR STUDY: Z12.31 ENCOUNTER FOR SCREENING MAMMOGRAM FOR MALIGNANT NEOPLASM OF BREAST Z12.31 ENCNTR SCREEN MAMMOGRAM FOR MALIGNANT NEOPLASM OF JARON COMPARISON: 2018 EXAM PARAMETERS: Views: Standard craniocaudal and mediolateral oblique views of each breast recorded using digital acquisition and breast tomosynthesis. Read with the assistance of CAD. .[facility] - [employer] Version 9.2 LIMITATIONS: None. FINDINGS: No suspicious masses, suspicious calcifications or architectural distortion. No areas of c oncern. IMPRESSION: NEGATIVE MAMMOGRAM. BIRADS 1. BREAST DENSITY: c. The breasts are heterogeneously dense, which may obscure small masses. BIRAD: ASSESSMENT: 1 NEGATIVE RECOMMENDATION: ROUTINE SCREENING COMMENT: The patient has been notified of the results by letter per MQSA requirements. Additional no tification policies are in place for contacting patient with suspicious or incomplete findings. Quality ID #[id number]: The [employer] recommends an annual screening mammogram for women aged 40 years or over. This facility utilizes a reminder system to ensure that all patients receive reminder letters, and/or direct phone calls for appointments. This includes reminders for routine scr eening mammograms, diagnostic mammograms, or other Breast Imaging Interventions when appropriate. Th is patient will be placed in the appropriate reminder system. TECHNICAL DOCUMENTATION: FINDING NUMBER: (1) ASSESSMENT: (1) JOB ID: [id number] [employer]- All Rights Reserved Reading location - IP/workstation name: [email or web address]
== END ==
LOC: WI 08:13
PROVIDERS: ATTEND Family Medicine
DX: Z12.31 Encounter for screening mammogram for malignant neoplasm of breast (principal)
CPT/HCPCS: 77063; 77067

== ENCOUNTER 2018-09-06 20:34 | Emergency (ER) | payer MEDICARE, MEDICAID ==
[2018-09-07] MEDS ORDERED: OXYCODONE-ACETAMINOPHEN 5-325 MG TABLET PO ONE (00:38)
[2018-09-07] MEDS ORDERED: ONDANSETRON 4 MG TAB.RAPDIS PO ONE (00:38)
--- NOTE | 2018-09-07 00:40 | ER Document Report ---
ED Medical Screen (RME) - General Chief Complaint: Flank Pain Stated Complaint: ABDOMINAL, BACK, LEG PAIN Time Seen by Provider: 09/07/18 00:33 Primary Care Provider: JANICE MORENO MD [Primary Care Provider] - Follow up as needed Notes: 58-year-old female chief complaint of 2 days of pain in her flank radiating around mainly to her right mid to lower abdomen. Pain is been worsening. She denies dysuria, fever/chills, nausea/vomiting, injury. Separately she is having some sciatic pain but this is chronic. Denies history of kidney stones. TRAVEL OUTSIDE OF THE [place] IN LAST 30 DAYS: No - Related Data Allergies/Adverse Reactions: morphine Allergy (Mild, Verified 12/07/17 14:40) Hives carbamazepine [From Tegretol] Allergy (Verified 12/07/17 14:40) ibuprofen [From Motrin] Allergy (Verified 12/07/17 14:40) sulfamethoxazole [From Bactrim] Allergy (Verified 12/07/17 14:40) trimethoprim [From Bactrim] Allergy (Verified 12/07/17 14:40) Past Medical History - Past Medical History Cardiac Medical History: Reports: Hx Atrial Fibrillation, Hx Hypercholesterolemia Neurological Medical History: Reports: Hx Seizures Renal/ Medical History: Denies: Hx Peritoneal Dialysis Past Surgical History: Reports: Hx Appendectomy, Hx Cardiac Surgery - pacemaker, Hx Hysterectomy, Hx Tubal Ligation - Immunizations Hx Diphtheria, Pertussis, Tetanus Vaccination: Yes History of Influenza Vaccine for 11/2016 - 04/2017 Season: No Physical Exam - Vital signs Vitals: Temp Pulse Resp BP Pulse Ox 98.1 F 60 12 197/89 H 94 09/06/18 20:51 09/06/18 20:51 09/06/18 20:51 09/06/18 20:51 09/06/18 20:51 - General General appearance: Other - Patient appears uncomfortable but she is not in severe pain - Abdominal Tenderness: Tender - Generalized tenderness in the mid to lower abdomen more noticeable on the right. No guarding or rebound tenderness. Course - Re-evaluation Re-evalutation: Patient is hypertensive, medicating for her symptoms first, work-up pending. I have greeted and performed a rapid initial assessment of this patient. A comprehensive ED assessment and evaluation of the patient, analysis of test results and completion of the medical decision making process will be conducted by additional ED providers. - Vital Signs Vital signs: Temp Pulse Resp BP Pulse Ox 98.1 F 60 12 197/89 H 94 09/06/18 20:51 09/06/18 20:51 09/06/18 20:51 09/06/18 20:51 09/06/18 20:51 Doctor's Discharge - Discharge Referrals: JANICE MORENO MD [Primary Care Provider] - Follow up as needed
[2018-09-07 01:03] LABS: APPEARANCE,URINE CLEAR; BILIRUBIN,URINE NEGATIVE (NEGATIVE); COLOR,URINE YELLOW; GLUCOSE, URINE NEGATIVE (NEGATIVE); KETONES,URINE NEGATIVE (NEGATIVE); LEUKOCYTE ESTERASE,URINE NEGATIVE (NEGATIVE); NITRITE,URINE NEGATIVE (NEGATIVE); PROTEIN,URINE NEGATIVE (NEGATIVE); URINE SPECIFIC GRAVITY 1.024
[2018-09-07 01:04] LABS: ABSOLUTE BASOPHILS # (AUTO) 0.1 10^3/uL (0.0-0.2); ABSOLUTE LYMPHOCYTES (AUTO) 1.3 10^3/uL (0.5-4.7); ABSOLUTE MONOCYTES (AUTO) 0.5 10^3/uL (0.1-1.4); ABSOLUTE NEUT (AUTO) 6.1 10^3/uL (1.7-8.2); BASOPHILS % (AUTO) 0.7 % (0-2); HEMATOCRIT 45.3 % (36.0-47.0); LYMPHOCYTES % (AUTO) 16.2 % (13-45); MEAN CORPUSCULAR HEMOGLOBIN 27.4 pg (27.0-33.4); MEAN CORPUSCULAR HGB CONC 33.2 g/dL (32.0-36.0); MEAN CORPUSCULAR VOLUME 83 fl (80-97); MONOCYTES % (AUTO) 6.3 % (3-13); PLATELET COUNT 140 10^3/uL (150-450); RED CELL DISTRIBUTION WIDTH 15.5 % (11.5-14.0); SEGMENTED NEUTROPHILS % (AUTO) 76.8 % (42-78); TOTAL CELLS COUNTED % (AUTO) 100 %; WHITE BLOOD COUNT 7.9 10^3/uL (4.0-10.5)
--- NOTE | 2018-09-07 01:24 | RADIOLOGY REPORT (SQ) ---
EXAM DESCRIPTION: CT ABDOMEN PELVIS WITHOUT IV CONTRAST COMPLETED DATE/TME: 09/07/2018 00:39 CLINICAL HISTORY: 58 years Female R flank pain radiating to right abd COMPARISON: None. TECHNIQUE: Contiguous axial images obtained through the abdomen and pelvis without IV contrast. Reformatted images obtained. This exam was performed according to our department optimization program which includes automated exposure control, adjustment of the mA and/or kv according to patient size and/or use of iterative reconstruction technique. FINDINGS: The lung bases are clear. Enlarged liver measuring 19.3 cm. Spleen is enlarged measuring 19.7 x 15.4 cm. Pancreas is unremarkable. No adrenal masses. The kidneys appear unremarkable, with the exception of a 2 cm simple cyst off the superior pole of the right kidney.. No hydronephrosis or definite ureteral calculi. The gallbladder is visualized. No aneurysmal dilatation of the aorta. No bowel obstruction. The appendix is not identified. No free pelvic fluid. IMPRESSION: Enlarged liver and spleen No evidence of acute process, specifically no evidence of hydronephrosis or obstructive uropathy
[2018-09-07 01:25] LABS: ALANINE AMINOTRANSFERASE 26 U/L (9-52); ALKALINE PHOSPHATASE 99 U/L (38-126); ANION GAP 9 (5-19); ASPARTATE AMINO TRANSFERASE 27 U/L (14-36); BILIRUBIN,DIRECT 0.2 mg/dL (0.0-0.4); BILIRUBIN,TOTAL 0.3 mg/dL (0.2-1.3); BLOOD UREA NITROGEN 15 mg/dL (7-20); CALCIUM 9.1 mg/dL (8.4-10.2); CARBON DIOXIDE 29 mmol/L (22-30); CHLORIDE 103 mmol/L (98-107); GLUCOSE 109 mg/dL (75-110); TOTAL PROTEIN 6.5 g/dL (6.3-8.2)
[2018-09-07] MEDS ORDERED: METHYLPREDNISOLONE ACETATE INJ 80 MG/1 ML VIAL IM ONE (02:29)
--- NOTE | 2018-09-07 02:30 | ER Document Report ---
ED General - General Chief Complaint: Flank Pain Stated Complaint: ABDOMINAL, BACK, LEG PAIN Time Seen by Provider: 09/07/18 00:33 Primary Care Provider: [facility] [Provider Group] - Follow up in 3-5 days JANICE MORENO MD [Primary Care Provider] - Follow up in 3-5 days Notes: Patient is a 58 year old female that presents to the emergency department for chief complaint of back pain. Patient states she is had right-sided back pain that goes down to her leg for the past few days, she is headed on her left side as well but worse on the right. She has a history of sciatica and thinks that might be what is going on. She denies any new injuries that she is aware. She denies noting any numbness, tingling or weakness, just pain going down her leg. Denies any lightheadedness, dizziness, recent fevers, chills or night sweats. She also denies having any nausea, vomiting, abdominal pain, dysuria or hematuria. She does states she is been having issues with a yeast infection, in the vaginal area, tried taking [id number] medications without improvement. Past Medical History: Seizure disorder Past Surgical History: Epidural back injections Social History: Denies tobacco, alcohol or drug use. Primary care is Dr. Moreno Family History: Reviewed and noncontributory for presenting illness Allergies: Reviewed, see documented allergy list. REVIEW OF SYSTEMS: Other than noted above, the 12 point review of systems was reviewed with the patient and were negative, all pertinent findings are included in the HPI. PHYSICAL EXAMINATION: Vital signs reviewed, nursing noted reviewed. GENERAL: Obese female, no acute distress. HEAD: Atraumatic, normocephalic. EYES: Eyes appear normal, extraocular movements intact, sclera anicteric, conjunctiva are normal. ENT: nares patent, oropharynx clear without exudates. Moist mucous membranes. NECK: Normal range of motion, supple without lymphadenopathy LUNGS: Breath sounds clear to auscultation bilaterally and equal. No wheezes rales or rhonchi. HEART: Regular rate and rhythm without murmurs ABDOMEN: Soft, nontender, normoactive bowel sounds. No rebound, guarding, or rigidity. No masses appreciated. EXTREMITIES: Nontender, good range of motion, no pitting or edema. Back:, No midline tenderness, step-off or deformity, there is mild paraspinal tenderness bilaterally of the lumbar spine, none of the thoracic spine. There is positive straight leg raising on the left and right, with pain radiating down the legs, without paresthesias. NEUROLOGICAL: No focal neurological deficits. Moves all extremities spontaneou sly Motor and sensory grossly intact on exam. Deep tendon reflexes are intact in the patellar and Achilles tendon reflexes bilaterally. Patient is +5/5 strength with plantarflexion, dorsiflexion, and extension of the houses longus tendon bilaterally. PSYCH: Normal mood, normal affect. SKIN: Warm, Dry, normal turgor, no rashes or lesions noted on exposed skin TRAVEL OUTSIDE OF THE [place] IN LAST 30 DAYS: No - Related Data Allergies/Adverse Reactions: morphine Allergy (Mild, Verified 12/07/17 14:40) Hives carbamazepine [From Tegretol] Allergy (Verified 12/07/17 14:40) ibuprofen [From Motrin] Allergy (Verified 12/07/17 14:40) sulfamethoxazole [From Bactrim] Allergy (Verified 12/07/17 14:40) trimethoprim [From Bactrim] Allergy (Verified 12/07/17 14:40) Past Medical History - Social History Smoking Status: Never Smoker Family History: Reviewed & Not Pertinent - Past Medical History Cardiac Medical History: Reports: Hx Atrial Fibrillation, Hx Hypercholesterolemia Neurological Medical History: Reports: Hx Seizures Renal/ Medical History: Denies: Hx Peritoneal Dialysis Past Surgical History: Reports: Hx Appendectomy, Hx Cardiac Surgery - pacemaker, Hx Hysterectomy, Hx Tubal Ligation - Immunizations Hx Diphtheria, Pertussis, Tetanus Vaccination: Yes Physical Exam - Vital signs Vitals: Temp Pulse Resp BP Pulse Ox 98.1 F 60 12 197/89 H 94 09/06/18 20:51 09/06/18 20:51 09/06/18 20:51 09/06/18 20:51 09/06/18 20:51 Course - Re-evaluation Re-evalutation: Patient seen and examined vital signs reviewed. Laboratory data and/or imaging were ordered as appropriate for the patient's presenting symptoms and complaint, with consideration of any critical or life threatening conditions that may be associated with their obtained history and exam as noted above. Patient was treated with IM Depo-Medrol, and Diflucan Results were reviewed when available and demonstrated unremarkable blood work, and negative CT abdomen and pelvis The patient was re-evaluated and was stable Evaluation was most consistent with sciatica, and vaginal candidiasis, will treat the patient with Diflucan in the ED, 150 mg one-time dose, was given Depo- Medrol, advised if tolerated to take NSAIDs or Tylenol for pain to follow-up with pain management. Patient was agreeable Results were discussed with the patient at this point, after careful consideration I feel that that patient can be discharged from the emergency dep artment, the patient was educated treatments and reasons to return to the emergency department based on their presumed diagnosis as noted above, they were advised to followup with a primary care physician in 2-3 days. Patient was agreeable to plan of care. *Note is created using voice recognition software and may contain spelling, syntax or grammatical errors. Laboratory 09/07/18 09/07/18 09/07/18 00:37 00:55 00:55 WBC 7.9 RBC 5.50 H Hgb 15.0 Hct 45.3 MCV 83 MCH 27.4 MCHC 33.2 RDW 15.5 H Plt Count 140 L Seg Neutrophils % 76.8 Lymphocytes % 16.2 Monocytes % 6.3 Eosinophils % 0.0 Basophils % 0.7 Absolute Neutrophils 6.1 Absolute Lymphocytes 1.3 Absolute Monocytes 0.5 Absolute Eosinophils 0.0 Absolute Basophils 0.1 Sodium 141.0 Potassium 4.0 Chloride 103 Carbon Dioxide 29 Anion Gap 9 BUN 15 Creatinine 0.96 Est GFR ( Amer) > 60 Est GFR (Non-Af Amer) > 60 Glucose 109 Calcium 9.1 Total Bilirubin 0.3 Direct Bilirubin 0.2 Neonat Total Bilirubin Not Reportable Neonat Direct Bilirubin Not Reportable Neonat Indirect Bili Not Reportable AST 27 ALT 26 Alkaline Phosphatase 99 Total Protein 6.5 Albumin 4.0 Lipase 78.1 Urine Color YELLOW Urine Appearance CLEAR Urine pH 5.0 Ur Specific [place] 1.024 Urine Protein NEGATIVE Urine Glucose (UA) NEGATIVE Urine Ketones NEGATIVE Urine Blood NEGATIVE Urine Nitrite NEGATIVE Urine Bilirubin NEGATIVE Urine Urobilinogen 2.0 H Ur Leukocyte Esterase NEGATIVE Urine WBC (Auto) 7 Urine RBC (Auto) 0 Squamous Epi Cells Auto 1 Urine Mucus (Auto) RARE Urine Ascorbic Acid NEGATIVE Abdomen/Pelvis CT 09/07/18 00:39 IMPRESSION: Enlarged liver and spleen No evidence of acute process, specifically no evidence of hydronephrosis or obstructive uropathy - Vital Signs Vital signs: Temp Pulse Resp BP Pulse Ox 97.9 F 60 18 163/96 H 95 09/07/18 03:46 09/07/18 03:46 09/07/18 03:46 09/07/18 03:46 09/07/18 03:46 - Laboratory Result Diagrams: 09/07/18 00:55 09/07/18 00:55 Laboratory results interpreted by me: 09/07/18 09/07/18 00:37 00:55 RBC 5.50 H RDW 15.5 H Plt Count 140 L Urine Urobilinogen 2.0 H Discharge - Discharge Clinical Impression: Vaginal candidiasis Sciatica Qualifiers: Laterality: bilateral Qualified Code(s): M54.31 - Sciatica, right side Condition: Stable Disposition: HOME, SELF-CARE Instructions: Sciatica ([facility]), Vaginal Yeast Infection ([facility]) Additional Instructions: You have been given vitamin and injection of steroid, which will start to work in the next 12 hours to try to try and relieve your back pain and symptoms of sciatica, please use a heating pad or cool compresses for 20 minutes on 20 minutes off to your lower back to see if this will help as well. The phone number for the [facility] has been listed with your paperwork as well, if your symptoms continue or persist. Referrals: JANICE MORENO MD [Primary Care Provider] - Follow up in 3-5 days [facility] [Provider Group] - Follow up in 3-5 days
[2018-09-07] MEDS ORDERED: FLUCONAZOLE 100 MG TABLET PO ONE (02:56)
[2018-09-07 03:48] VITALS: BP 163/96
== END 2018-09-07 03:48 | disposition home or self-care (01) ==
LOC: ER 20:34
DX: B37.3 Candidiasis of vulva and vagina (principal); M54.31 Sciatica, right side; R10.9 Unspecified abdominal pain; M54.9 Dorsalgia, unspecified; M79.604 Pain in right leg
CPT/HCPCS: 99284; 96374; 36415; 83690; 85025; 80053; 81001; 74176; A9270 ×3; J1040; S0119

== ENCOUNTER 2018-09-17 18:47 | Emergency (ER) | payer MEDICARE, MEDICAID ==
[2018-09-17] MEDS ORDERED: IBUPROFEN 800 MG TABLET PO ONE (19:29)
--- NOTE | 2018-09-17 19:32 | ER Document Report ---
ED Medical Screen (RME) - General Chief Complaint: Fall Injury Stated Complaint: FALL Time Seen by Provider: 09/17/18 19:24 Primary Care Provider: JANICE MORENO MD [Primary Care Provider] - Follow up as needed Mode of Arrival: Wheelchair Information source: Patient Notes: This 58-year-old female presents emergency department post fall. She reports she was getting out of the car when she is not sure if her knees gave out or her blood sugar dropped or her blood pressure dropped and she fell hitting her head. She reports she is unsure if she had any change in LOC. But is possible. She remembers yelling out that she hit her head. She has an abrasion to her elbow. She complains of headache and neck pain. She reports a steam boiler fireman did respond and attempted to place a cervical collar on her but because she is so big the collar did not fit. She was told just to keep her head still. She denies feeling nauseated no vomiting. Patient reports she was recently diagnosed with sciatica and received a shot of what sounds like Toradol yesterday at her primary care providers. She reports no back pain at this time. Dictation of this chart was performed using voice recognition software; therefore, there may be some unintended grammatical errors. I have greeted and performed a rapid initial assessment of this patient. A comprehensive ED assessment and evaluation of the patient, analysis of test results and completion of the medical decision making process will be conducted by additional ED providers. TRAVEL OUTSIDE OF THE [place] IN LAST 30 DAYS: No - Related Data Allergies/Adverse Reactions: morphine Allergy (Mild, Verified 09/17/18 18:49) Hives carbamazepine [From Tegretol] Allergy (Verified 09/17/18 18:49) sulfamethoxazole [From Bactrim] Allergy (Verified 09/17/18 18:49) trimethoprim [From Bactrim] Allergy (Verified 09/17/18 18:49) Past Medical History - Social History Chew tobacco use (# tins/day): No Frequency of alcohol use: Rare Drug Abuse: None - Past Medical History Cardiac Medical History: Reports: Hx Atrial Fibrillation, Hx Hypercholesterolemia Neurological Medical History: Reports: Hx Seizures Renal/ Medical History: Denies: Hx Peritoneal Dialysis Past Surgical History: Reports: Hx Appendectomy, Hx Cardiac Surgery - pacemaker, Hx Hysterectomy, Hx Tubal Ligation - Immunizations Hx Diphtheria, Pertussis, Tetanus Vaccination: Yes History of Influenza Vaccine for 11/2016 - 04/2017 Season: No Physical Exam - Vital signs Vitals: Temp Pulse Resp BP Pulse Ox 98.4 F 60 18 196/74 H 95 09/17/18 18:56 09/17/18 18:56 09/17/18 18:56 09/17/18 18:56 09/17/18 18:56 Course - Vital Signs Vital signs: Temp Pulse Resp BP Pulse Ox 98.4 F 60 18 196/74 H 95 09/17/18 18:56 09/17/18 18:56 09/17/18 18:56 09/17/18 18:56 09/17/18 18:56 Doctor's Discharge - Discharge Referrals: JANICE MORENO MD [Primary Care Provider] - Follow up as needed
--- NOTE | 2018-09-17 21:04 | RADIOLOGY REPORT (SQ) ---
CT BRAIN AND CERVICAL SPINE EXAM DATE: 09/17/2018 7:29 PM CDT HISTORY: Trauma. COMPARISON: None. TECHNIQUE: CT scan of the brain and cervical spine without IV contrast. This exam was performed according to our departmental dose-optimization program, which includes automated exposure control, adjustment of the mA and/or kV according to patient size and/or use of iterative reconstruction technique. FINDINGS: BRAIN: The ventricles, cisterns, and sulci are age-appropriate. No evidence of acute infarction, intracranial hemorrhage, extra-axial fluid collection, or midline shift. No air-fluid levels are seen in the paranasal sinuses to suggest acute sinusitis. No depressed skull fracture. There is a left posterior parietal scalp hematoma. CERVICAL SPINE: No acute cervical fracture or prevertebral soft tissue swelling. There is straightening of the normal cervical lordosis, which may be due to cervical collar, muscle spasm, or patient positioning. There is mild degenerative disc disease. The facet joints are intact. No advanced spinal canal stenosis partially visualized 3.7 cm hypodense complex lesion in the left thyroid lobe. IMPRESSION: 1. No acute intracranial hemorrhage. 2. No acute fracture or subluxation of the cervical spine. 3. 3.7 cm incidental thyroid nodule. Recommend thyroid US. Reference: J Am Maribeth Radiol. 2015 b;12(2): 143-50
--- NOTE | 2018-09-18 00:40 | ER Document Report ---
ED Fall - General Chief Complaint: Fall Injury Stated Complaint: FALL Time Seen by Provider: 09/17/18 19:24 Primary Care Provider: [facility] [Provider Group] - Follow up as needed JANICE MORENO MD [Primary Care Provider] - Follow up as needed ADRIEN CHENEY DO [ASSOCIATE] - Follow up in 1 month Mode of Arrival: Wheelchair Information source: Patient Notes: 58-year-old female to the emergency department chief complaint of fall. Patient states that she has a history of low back pain which is causing dysfunction of her right leg. Followed by primary care doctor. Scheduled to see pain management. States that her knee keeps giving out. She does not have syncopal episodes that suggest that the knee gives out. She has numbness in her right leg as well. Has had imaging performed. Scheduled to have evaluation with pain management. When she went to get out of the car her right knee gave out and she fell backwards hitting the back of her head. No loss of consciousness. Not on any blood thinners. Denies any chest pain or shortness of breath. Patient does have a pacemaker. TRAVEL OUTSIDE OF THE [place] IN LAST 30 DAYS: No - HPI Occurred: Just prior to arrival Where: Home Context: Tripped Associated symptoms: None Location of injury/pain: Head Quality of pain: Dull Severity: Moderate Pain Level: 3 - Related data Allergies/Adverse Reactions: morphine Allergy (Mild, Verified 09/17/18 18:49) Hives carbamazepine [From Tegretol] Allergy (Verified 09/17/18 18:49) sulfamethoxazole [From Bactrim] Allergy (Verified 09/17/18 18:49) trimethoprim [From Bactrim] Allergy (Verified 09/17/18 18:49) Past Medical History - General Information source: Patient - Social History Smoking Status: Never Smoker Chew tobacco use (# tins/day): No Frequency of alcohol use: Rare Drug Abuse: None Lives with: Family Family History: Reviewed & Not Pertinent Patient has suicidal ideation: No Patient has homicidal ideation: No - Past Medical History Cardiac Medical History: Reports: Hx Atrial Fibrillation, Hx Hypercholesterolemia Neurological Medical History: Reports: Hx Seizures Renal/ Medical History: Denies: Hx Peritoneal Dialysis Past Surgical History: Reports: Hx Appendectomy, Hx Cardiac Surgery - pacemaker, Hx Hysterectomy, Hx Tubal Ligation - Immunizations Hx Diphtheria, Pertussis, Tetanus Vaccination: Yes Review of Systems - Review of Systems Notes: Constitutional: denies: Chills, Diaphoresis, Fever, Malaise, Weakness EENT: denies: Eye discharge, Blurred vision, Tearing, Double vision, Nose congestion, Nose discharge, Throat swelling, Mouth pain. positive for pain on the occiput Cardiovascular: denies: Palpitations, Heart racing, Orthopnea, Dyspnea, Chest pain Respiratory: denies: Cough, Hurts to breathe, Wheezing, Shortness of breath Gastrointestinal: denies: Abdominal pain, Diarrhea, Nausea, Vomiting, Black stools, bright red blood in stool Genitourinary: denies: Burning, Dysuria, Discharge, Frequency, Flank pain, Hematuria Musculoskeletal: denies: Joint pain, Joint swelling, Muscle pain, Muscle stiffness, back pain, the right knee gave out Hematologic/Lymphatic: denies: Anemia, Easy bleeding, Easy bruising, Blood sofia ts Neurological/Psychological: denies: Confusion, Dementia, Depression, Loss of consciousness Skin: No lesions, no masses, no skin breakdown, no abscesses Physical Exam - Vital signs Vitals: Temp Pulse Resp BP Pulse Ox 98.4 F 60 18 196/74 H 95 09/17/18 18:56 09/17/18 18:56 09/17/18 18:56 09/17/18 18:56 09/17/18 18:56 Interpretation: Normal - General General appearance: Appears well, Alert - HEENT Head: Normocephalic, Tenderness - The occiput, Other - Contusion noted on the occiput of the scalp. No lacerations.. No: Mohan's sign, [place]'s eyes Eyes: Normal Pupils: PERRL Fundascopic: Normal Pharynx: Normal Neck: Normal, Supple, Other - No midline tenderness. - Respiratory Respiratory status: No respiratory distress Chest status: Nontender Breath sounds: Normal Chest palpation: Normal - Cardiovascular Rhythm: Regular Heart sounds: Normal auscultation Murmur: No - Abdominal Inspection: Normal Distension: No distension Bowel sounds: Normal Tenderness: Nontender Organomegaly: No organomegaly - Back Back: Normal, Nontender - Extremities General upper extremity: Normal inspection, Nontender, Normal color, Normal ROM, Normal temperature General lower extremity: Normal inspection, Nontender, Normal color, Normal ROM, Normal temperature, Normal weight bearing. No: Edil's sign - Neurological Neuro grossly intact: Yes Cognition: Normal Orientation: AAOx4 [place] Coma Scale Eye Opening: Spontaneous [place]i Coma Scale Verbal: Oriented Bein Coma Scale Motor: Obeys Commands [place] Coma Scale Total: 15 Speech: Normal Motor strength normal: LUE, RUE, LLE, RLE Sensory: Normal - Psychological Associated symptoms: Normal affect, Normal mood - Skin Skin Temperature: Warm Skin Moisture: Dry Skin Color: Normal Course - Re-evaluation Re-evalutation: 09/18/18 01:09 Laboratory 09/17/18 09/18/18 19:59 00:21 POC Glucose 123 H Urine Color YELLOW Urine Appearance CLOUDY Urine pH 5.0 Ur Specific [place] 1.030 Urine Protein 30 H Urine Glucose (UA) NEGATIVE Urine Ketones NEGATIVE Urine Blood SMALL H Urine Nitrite NEGATIVE Urine Bilirubin NEGATIVE Urine Urobilinogen 4.0 H Ur Leukocyte Esterase LARGE H Urine WBC (Auto) >182 Urine RBC (Auto) 24 Urine Bacteria (Auto) 1+ Squamous Epi Cells Auto 23 U Non-Squamous Epis Auto 7 Urine Mucus (Auto) FEW Urine Ascorbic Acid NEGATIVE Cervical Spine CT 09/17/18 19:29 IMPRESSION: 1. No acute intracranial hemorrhage. 2. No acute fracture or subluxation of the cervical spine. 3. 3.7 cm incidental thyroid nodule. Recommend thyroid US. Reference: J Am Maribeth Radiol. 2014;12(2): 143-[address] 09/17/18 19:29 IMPRESSION: 1. No acute intracranial hemorrhage. 2. No acute fracture or subluxation of the cervical spine. 3. 3.7 cm incidental thyroid nodule. Recommend thyroid US. Reference: J Am Maribeth Radiol. 2014;12(2): 143-50 She is awake alert in no acute distress. No evidence of syncope. Had a mechanical fall hitting the back of her head. No LOC. C-spine and head CT was read as negative. An x-ray was added of the lumbar spine based on her history of this reported back pain and leg giving out. No acute pathology was seen with the L-spine. At this time I think patient is stable for further outpatient work-up. Of note, patient does have incidental UTI and has reported frequency of urination. Her blood sugar was 123. Known diabetic. Patient stable for discharge at this time. 08/04/19 01:59 Lumbar spine series : Negative for acute fracture - Vital Signs Vital signs: Temp Pulse Resp BP Pulse Ox 97.7 F 60 16 154/70 H 95 09/18/18 01:29 09/18/18 01:29 09/18/18 01:29 09/18/18 01:29 09/18/18 01:29 - Laboratory Laboratory results interpreted by me: 09/17/18 09/18/18 19:59 00:21 POC Glucose 123 H Urine Protein 30 H Urine Blood SMALL H Urine Urobilinogen 4.0 H Ur Leukocyte Esterase LARGE H Discharge - Discharge Clinical Impression: Contusion of head Qualifiers: Encounter type: initial encounter Contusion of head detail: scalp Qualified Code(s): S00.03XA - Contusion of scalp, initial encounter Minor head injury without loss of consciousness Qualifiers: Encounter type: initial encounter Qualified Code(s): S09.90XA - Unspecified injury of head, initial encounter Urinary tract infection Qualifiers: Urinary tract infection type: acute cystitis Hematuria presence: without hematuria Qualified Code(s): N30.00 - Acute cystitis without hematuria Condition: Good Disposition: HOME, SELF-CARE Instructions: Chronic Back Pain ([facility]), Contusion ([facility]), Head Injury Precautions ([facility]), Nitrofurantoin ([facility]), Urinary Tract Infection ([facility]) Additional Instructions: Please return for any worsening symptoms or concerns. Of note, the CT scan of your neck revealed a nodule on your thyroid. This will need to be evaluated as an outpatient. Follow-up information for ENT has been provided as well. Prescriptions: Nitrofurantoin/Nitrofuran Mac [Macrobid 100 mg Capsule] 1 tab PO BID 10 Days #20 capsule Referrals: JANICE MORENO MD [Primary Care Provider] - Follow up as needed ADRIEN CHENEY DO [ASSOCIATE] - Follow up in 1 month [facility] [Provider Group] - Follow up as needed
[2018-09-18 00:59] LABS: APPEARANCE,URINE CLOUDY; BILIRUBIN,URINE NEGATIVE (NEGATIVE); COLOR,URINE YELLOW; GLUCOSE, URINE NEGATIVE (NEGATIVE); KETONES,URINE NEGATIVE (NEGATIVE); LEUKOCYTE ESTERASE,URINE LARGE (NEGATIVE); NITRITE,URINE NEGATIVE (NEGATIVE); PROTEIN,URINE 30 mg/dL (NEGATIVE)
[2018-09-18] MEDS ORDERED: NITROFURANTOIN MONOHYD/M-CRYST 100 MG CAPSULE PO ONE (01:06)
[2018-09-18] MEDS ORDERED: ACETAMINOPHEN 325 MG TABLET PO ONE (01:06)
--- NOTE | 2018-09-18 01:26 | RADIOLOGY REPORT (SQ) ---
5 VIEWS OF LUMBAR SPINE EXAM DATE: 09/18/2018 12:39 AM CDT HISTORY: Lower back pain. COMPARISON: None. FINDINGS: No acute compression fracture is seen. Grade 1 anterolisthesis of L4-L5. Mild facet DJD in the lower lumbar spine. No evidence of spondylolysis on the oblique views. The sacroiliac joints are preserved. Generalized osteopenia is present. IMPRESSION: No acute compression fracture of the lumbar spine is seen. However, please note that if there is point tenderness or high clinical concern, a CT scan is recommended.
[2018-09-18 01:30] VITALS: BP 154/70
== END 2018-09-18 01:32 | disposition home or self-care (01) ==
LOC: ER 18:47
DX: S00.03XA Contusion of scalp, initial encounter (principal); M54.5 Low back pain; R20.0 Anesthesia of skin; W19.XXXA Unspecified fall, initial encounter; Y93.89 Activity, other specified; Y92.009 Unspecified place in unspecified non-institutional (private) residence as the place of occurrence of the external cause; N30.00 Acute cystitis without hematuria; E11.9 Type 2 diabetes mellitus without complications; E04.1 Nontoxic single thyroid nodule; Z95.0 Presence of cardiac pacemaker; Z88.5 Allergy status to narcotic agent; Z88.1 Allergy status to other antibiotic agents; Z88.6 Allergy status to analgesic agent
CPT/HCPCS: 99284; 87086; 82962; 81001; 72110; 70450; 72125; A9270 ×3; J8499

== ENCOUNTER 2019-07-28 11:19 | Inpatient (IN) | payer MEDICARE, MEDICAID ==
[2019-07-28] MEDS ORDERED: PIPERACILLIN/TAZOBACTAM 3.375 GM VIAL IV ONE (12:04)
[2019-07-28] MEDS ORDERED: VANCOMYCIN HCL INJ 1000 MG VIAL IV ONE (12:05)
--- NOTE | 2019-07-28 12:07 | ER Document Report ---
ED Extremity Problem, Lower - General Chief Complaint: Foot Pain Stated Complaint: FOOT PAIN Time Seen by Provider: 07/28/19 11:48 Mode of Arrival: Ambulatory Information source: Patient Notes: 59-year-old woman presents to the emergency department with a complaint of left leg cellulitis. Apparently she was seen at outpatient clinic and sent to the emergency department because of cellulitis extending into the leg. Patient is not febrile, complains of some pain in the left foot. She has known allergies to Bactrim. TRAVEL OUTSIDE OF THE [place] IN LAST 30 DAYS: No - Related Data Allergies/Adverse Reactions: morphine Allergy (Mild, Verified 09/17/18 18:49) Hives carbamazepine [From Tegretol] Allergy (Verified 09/17/18 18:49) sulfamethoxazole [From Bactrim] Allergy (Verified 09/17/18 18:49) trimethoprim [From Bactrim] Allergy (Verified 09/17/18 18:49) Past Medical History - Social History Smoking Status: Former Smoker Family History: Reviewed & Not Pertinent Patient has homicidal ideation: No - Past Medical History Cardiac Medical History: Reports: Hx Atrial Fibrillation, Hx Hypercholesterolemia Neurological Medical History: Reports: Hx Seizures Endocrine Medical History: Reports: Hx Diabetes Mellitus Type 2 Renal/ Medical History: Denies: Hx Peritoneal Dialysis Past Surgical History: Reports: Hx Appendectomy, Hx Cardiac Surgery - pacemaker, Hx Hysterectomy, Hx Tubal Ligation - Immunizations Hx Diphtheria, Pertussis, Tetanus Vaccination: Yes Review of Systems - Review of Systems Notes: Constitutional: Negative for fever. HENT: Negative for sore throat. Eyes: Negative for visual changes. Cardiovascular: Negative for chest pain. Respiratory: Negative for shortness of breath. Gastrointestinal: Negative for abdominal pain, vomiting or diarrhea. Genitourinary: Negative for dysuria. Musculoskeletal: Negative for back pain. Skin: + Left lower extremity erythema Neurological: Negative for headaches, weakness or numbness. 10 point ROS negative except as marked above and in HPI. Physical Exam - Vital signs Vitals: Temp Pulse Resp BP Pulse Ox 98.8 F 60 20 139/67 H 98 07/28/19 11:35 07/28/19 11:35 07/28/19 11:35 07/28/19 11:35 07/28/19 11:35 - Notes Notes: PHYSICAL EXAMINATION: Physical Exam: General: Well-nourished well-developed in no acute distress HEENT: NC/AT, pupils equal round and reactive to light, MM moist,nares clear, oropharynx clear, airway patent Neck: supple, no adenopathy, no masses. Good range of motion Lungs: clear, no wheezing, no rales no rhonchi CVS: Regular rate and rhythm no murmur gallop or rub Abdomen: Soft, active, nontender, no masses, no hepatosplenomegaly Ext: No edema, clubbing or cyanosis. Neuro: Alert and responsive, moving all 4 extremities on command, cranial nerves intact, no focal findings Skin: Dry flaking skin on the foot with erythema, erythema extending to the mid tibia region. No obvious swelling and no purulent drainage. PSYCH: Normal mood, normal affect. Course - Vital Signs Vital signs: Temp Pulse Resp BP Pulse Ox 98.8 F 60 20 139/67 H 98 07/28/19 11:35 07/28/19 11:35 07/28/19 11:35 07/28/19 11:35 07/28/19 11:35 - Laboratory Result Diagrams: 07/28/19 10:50 07/28/19 10:50 Laboratory results interpreted by me: 07/28/19 07/28/19 10:50 12:38 RDW 15.6 H Plt Count 149 L Urine Protein 30 H Urine Urobilinogen 2.0 H Leukocyte Esterase Rfl LARGE H - Diagnostic Test Radiology reviewed: Image reviewed, Reports reviewed Radiology results interpreted by me: 07/28/19 14:01 Left tib-fib: No bony involvement and no soft tissue gas. Left foot: Moderate osteoarthritis of the midfoot with calcaneal spur, no osteomyelitis. Discharge - Discharge Clinical Impression: Cellulitis of left lower extremity UTI (urinary tract infection) Qualifiers: Urinary tract infection type: site unspecified Hematuria presence: without hematuria Qualified Code(s): N39.0 - Urinary tract infection, site not specified Condition: Good Disposition: ADMITTED INPATIENT Admitting Provider: Reginald (Hospitalist) Unit Admitted: Medical Floor
[2019-07-28 12:17] LABS: ABSOLUTE LYMPHOCYTES (AUTO) 0.9 10^3/uL (0.5-4.7); ABSOLUTE MONOCYTES (AUTO) 0.3 10^3/uL (0.1-1.4); BASOPHILS % (AUTO) 0.4 % (0-2); HEMATOCRIT 44.2 % (36.0-47.0); HEMOGLOBIN 14.6 g/dL (12.0-15.5); LYMPHOCYTES % (AUTO) 16.5 % (13-45); MEAN CORPUSCULAR HEMOGLOBIN 28.4 pg (27.0-33.4); MEAN CORPUSCULAR HGB CONC 32.9 g/dL (32.0-36.0); MEAN CORPUSCULAR VOLUME 86 fl (80-97); MONOCYTES % (AUTO) 6.5 % (3-13); PLATELET COUNT 149 10^3/uL (150-450); RED BLOOD COUNT 5.13 10^6/uL (3.72-5.28); RED CELL DISTRIBUTION WIDTH 15.6 % (11.5-14.0); SEGMENTED NEUTROPHILS % (AUTO) 76.6 % (42-78); TOTAL CELLS COUNTED % (AUTO) 100 %; WHITE BLOOD COUNT 5.2 10^3/uL (4.0-10.5)
[2019-07-28 12:28] LABS: ALBUMIN 3.8 g/dL (3.5-5.0); ALKALINE PHOSPHATASE 88 U/L (38-126); ANION GAP 7 (5-19); ASPARTATE AMINO TRANSFERASE 20 U/L (14-36); BILIRUBIN,TOTAL 0.4 mg/dL (0.2-1.3); BLOOD UREA NITROGEN 17 mg/dL (7-20); CALCIUM 9.7 mg/dL (8.4-10.2); CARBON DIOXIDE 30 mmol/L (22-30); CHLORIDE 104 mmol/L (98-107); GLUCOSE 97 mg/dL (75-110); POTASSIUM 4.6 mmol/L (3.6-5.0); TOTAL PROTEIN 6.6 g/dL (6.3-8.2)
--- NOTE | 2019-07-28 12:29 | RADIOLOGY REPORT (SQ) ---
EXAM DESCRIPTION: TIBIA FIBULA LEFT IMAGES COMPLETED DATE/TIME: 07/28/2019 11:16 am REASON FOR STUDY: Infection COMPARISON: None. NUMBER OF VIEWS: Two views. TECHNIQUE: Two radiographic images acquired of the left tibia and fibula to include the knee and ank le in at least one projection. LIMITATIONS: None. FINDINGS: MINERALIZATION: Normal. BONES: No acute fracture or dislocation. No worrisome bone lesions. SOFT TISSUES: No obvious swelling or foreign body. OTHER: No other significant finding. IMPRESSION: No radiographic abnormality of the left lower leg. TECHNICAL DOCUMENTATION: JOB ID: [id number] [employer]- All Rights Reserved Reading location - IP/workstation name: [email or web address]
--- NOTE | 2019-07-28 12:30 | RADIOLOGY REPORT (SQ) ---
EXAM DESCRIPTION: FOOT LEFT 2 VIEWS IMAGES COMPLETED DATE/TIME: 07/28/2019 11:16 am REASON FOR STUDY: Infection COMPARISON: None. NUMBER OF VIEWS: Three views. TECHNIQUE: AP, lateral and oblique radiographic images acquired of the left foot. LIMITATIONS: None. FINDINGS: MINERALIZATION: Normal. BONES: No acute fracture or cortical disruption. Bony osteophytes at the dorsal aspect of the midfoo t. Moderate plantar calcaneal spur. JOINTS: No effusions. SOFT TISSUES: No soft tissue swelling. No foreign body. OTHER: No other significant finding. IMPRESSION: Moderate osteoarthritis of the midfoot. Moderate plantar calcaneal spur which can be se en with plantar fasciitis. No radiographic evidence of osteomyelitis. TECHNICAL DOCUMENTATION: JOB ID: [id number] 2010 [employer]- All Rights Reserved Reading location - IP/workstation name: [email or web address]
[2019-07-28 13:05] LABS: APPEARANCE,URINE SLIGHTLY-CLOUDY; BILIRUBIN,URINE NEGATIVE (NEGATIVE); COLOR,URINE YELLOW; GLUCOSE, URINE NEGATIVE (NEGATIVE); KETONES,URINE NEGATIVE (NEGATIVE); PROTEIN,URINE 30 mg/dL (NEGATIVE); URINE SPECIFIC GRAVITY 1.021
[2019-07-28] MEDS ORDERED: VANCOMYCIN HCL 0 MG in DEXTROSE 5%-WATER 250 ML IV NR (14:45)
--- NOTE | 2019-07-28 14:57 | PDOC H&P ---
History of Present Illness History of Present Illness: JUSTICE BENDER is a 59 year old female with a history of [id number] diabetes mellitus, hypertension, hyperlipidemia, morbid obesity, depression, seizures, and urinary incontinence who presents with a 2- day history of left leg redness and swelling. It is distal to the knee. She says she has had trouble with swelling in her legs for 20 years. She says normally she keeps it elevated and the swelling goes down. She said the last couple of days is gotten more red and swollen and she is having some sloughing of the skin. She is not been running any fevers. She is not noticed any exudates. She has no oozing or draining lesions. She does not remember a specific trauma to the skin. She has not been on any treatment for it. She first went to see an urgent care today and they sent her to the ER. Plain films were negative for evidence of osteomyelitis. Past Medical History Cardiac Medical History: Reports: Atrial Fibrillation, Hyperlipidema Neurological Medical History: Reports: Seizures Endocrine Medical History: Reports: Diabetes Mellitus Type 2 Past Surgical History Past Surgical History: Reports: Appendectomy, Hysterectomy, Tubal Ligation Social History Smoking Status: Former Smoker Family History Family History: Reviewed & Not Pertinent, Arthritis, DM, Hyperlipidemia, Hypertension Parental Family History Reviewed: Yes Children Family History Reviewed: NA Sibling(s) Family History Reviewed.: Yes Medication/Allergy Home Medications: Oxcarbazepine 300 mg PO BID #14 tablet 01/09/18 Oxybutynin Chloride [Oxybutynin Chloride ER] 15 mg PO DAILY 01/09/18 Rosuvastatin Calcium [Crestor 20 mg Tablet] 20 mg PO QAM 01/09/18 Sertraline HCl [Zoloft 50 mg Tablet] 100 mg PO DAILY 01/09/18 Gabapentin [Neurontin 300 mg Capsule] 300 mg PO Q8 07/28/19 Lisinopril [Zestril] 20 mg PO DAILY 07/28/19 Meloxicam [Mobic] 15 mg PO QAM 07/28/19 Metformin HCl [Metformin HCl ER] 1,000 mg PO DAILY 07/28/19 Metoprolol Succinate [Toprol Xl 25 mg Tab.sr] 25 mg PO DAILY 07/28/19 Allergies/Adverse Reactions: morphine Allergy (Mild, Verified 09/17/18 18:49) Hives carbamazepine [From Tegretol] Allergy (Verified 09/17/18 18:49) sulfamethoxazole [From Bactrim] Allergy (Verified 09/17/18 18:49) trimethoprim [From Bactrim] Allergy (Verified 09/17/18 18:49) Review of Systems All systems: reviewed and no additional remarkable complaints except as stated - All systems were reviewed and were negative except as noted in the HPI Physical Exam Vital Signs: Temp Pulse Resp BP Pulse Ox 98.8 F 60 20 139/67 H 98 07/28/19 11:35 07/28/19 11:35 07/28/19 11:35 07/28/19 11:35 07/28/19 11:35 Intake & Output 07/27/19 07/28/19 07/29/19 06:59 06:59 06:59 Weight 140.16 kg General appearance: PRESENT: no acute distress, cooperative, disheveled, morbidly obese Head exam: PRESENT: atraumatic, normocephalic Eye exam: PRESENT: EOMI, PERRLA. ABSENT: conjunctival injection, nystagmus, scleral icterus Ear exam: PRESENT: normal external ear exam Mouth exam: PRESENT: moist, neck supple Throat exam: ABSENT: post pharyngeal erythema Neck exam: PRESENT: full ROM. ABSENT: carotid bruit, JVD, lymphadenopathy, meningismus, tenderness, thyromegaly Respiratory exam: PRESENT: clear to auscultation pay[place], symmetrical, unlabored. ABSENT: accessory muscle use, chest wall tenderness, crackles, prolonged expiratory phas, tachypnea, wheezes Cardiovascular exam: PRESENT: RRR, +S1, +S2 Pulses: PRESENT: normal carotid pulses Vascular exam: PRESENT: normal capillary refill GI/Abdominal exam: PRESENT: normal bowel sounds, soft. ABSENT: distended, guarding, rebound, tenderness Extremities exam: PRESENT: +1 edema - Left leg. ABSENT: clubbing, pedal edema Musculoskeletal exam: PRESENT: normal inspection. ABSENT: deformity Neurological exam: PRESENT: alert, awake, oriented to person, oriented to place, oriented to time, oriented to situation, CN II-XII grossly intact. ABSENT: motor sensory deficit Psychiatric exam: PRESENT: appropriate affect, normal mood Skin exam: PRESENT: other - There is erythema of the left lower extremity distal to the knee. There is significant sloughing of skin. There is 1+ edema distal to the knee. Results Laboratory Results: 07/28/19 10:50 07/28/19 10:50 07/28/19 07/28/19 07/28/19 10:50 10:50 12:38 WBC 5.2 RBC 5.13 Hgb 14.6 Hct 44.2 MCV 86 MCH 28.4 MCHC 32.9 RDW 15.6 H Plt Count 149 L Seg Neutrophils % 76.6 Sodium 141.3 Potassium 4.6 Chloride 104 Carbon Dioxide 30 Anion Gap 7 BUN 17 Creatinine 0.85 Est GFR ( Amer) > 60 Glucose 97 Calcium 9.7 Total Bilirubin 0.4 AST 20 Alkaline Phosphatase 88 Total Protein 6.6 Albumin 3.8 Urine Color YELLOW Urine Appearance SLIGHTLY-CLOUDY Urine pH 7.0 Ur Specific [place] 1.021 Urine Protein 30 H Urine Glucose (UA) NEGATIVE Urine Ketones NEGATIVE Urine Blood NEGATIVE Urine RBC (Auto) 6 Impressions: Foot X-Ray 07/28/19 12:03 IMPRESSION: Moderate osteoarthritis of the midfoot. Moderate plantar calcaneal spur which can be seen with plantar fasciitis. No radiographic evidence of osteomyelitis. Tibia/Fibula X-Ray 07/28/19 12:03 IMPRESSION: No radiographic abnormality of the left lower leg. Assessment and Plan - Diagnosis (1) Cellulitis of left lower extremity Is this a current diagnosis for this admission?: Yes Plan: Based on the severity, she looks like she needs to be on IV antibiotics for a few days. We will start her on vancomycin. Blood cultures have been obtained. There is no evidence of any pus that can be drained or cultured. (2) Non-insulin dependent diabetes mellitus Is this a current diagnosis for this admission?: Yes Plan: Continue metformin (3) Hypertension Qualifiers: Hypertension type: essential hypertension Qualified Code(s): I10 - Essential (primary) hypertension Is this a current diagnosis for this admission?: Yes Plan: Continue metoprolol and lisinopril (4) Hyperlipidemia Qualifiers: Hyperlipidemia type: other hyperlipidemia Qualified Code(s): E78.49 - Other hyperlipidemia; E78.4 - Other hyperlipidemia Is this a current diagnosis for this admission?: Yes Plan: Continue Crestor (5) Morbid obesity Is this a current diagnosis for this admission?: Yes Plan: I have strongly encourage lifestyle modification (6) Seizures Is this a current diagnosis for this admission?: Yes Plan: Continue oxcarbazepine (7) Urinary incontinence Qualifiers: Urinary Incontinence type: unspecified incontinence Qualified Code(s): R32 - Unspecified urinary incontinence Is this a current diagnosis for this admission?: Yes Plan: Continue oxybutynin - Time Time Spent with patient: 35 or more minutes - Inpatient Certification Based on my medical assessment, after consideration of the patient's comorbidities, presenting symptoms, or acuity I expect that the services needed warrant INPATIENT care.: Yes I certify that my determination is in accordance with my understanding of Medicare's requirements for reasonable and necessary INPATIENT services [42 CFR 412.3e].: Yes Medical Necessity: Significant Comorbidiites Make Outpatient Treatment Too Risky, Need Close Monitoring Due to Risk of Patient Decompensation, Need for IV Antibiotics, Risk of Complication if Not Cared For in Hospital
[2019-07-28] MEDS: VANCOMYCIN HCL 1,500 MG in DEXTROSE 5%-WATER 250 ML IV SCH (22:02)
[2019-07-28] MEDS: HEPARIN SOD (PORCINE) 5,000 UNIT/ML 1 ML VIAL SUBCUT SCH (22:03)
[2019-07-29] MEDS: HEPARIN SOD (PORCINE) 5,000 UNIT/ML 1 ML VIAL SUBCUT SCH ×3 (06:01→22:00)
[2019-07-29 06:03] LABS: HEMATOCRIT 38.4 % (36.0-47.0); HEMOGLOBIN 12.9 g/dL (12.0-15.5); MEAN CORPUSCULAR HEMOGLOBIN 28.2 pg (27.0-33.4); MEAN CORPUSCULAR HGB CONC 33.5 g/dL (32.0-36.0); MEAN CORPUSCULAR VOLUME 84 fl (80-97); PLATELET COUNT 131 10^3/uL (150-450); RED BLOOD COUNT 4.57 10^6/uL (3.72-5.28); RED CELL DISTRIBUTION WIDTH 15.4 % (11.5-14.0); WHITE BLOOD COUNT 4.9 10^3/uL (4.0-10.5)
[2019-07-29 06:24] LABS: ANION GAP 7 (5-19); BLOOD UREA NITROGEN 19 mg/dL (7-20); CALCIUM 9.4 mg/dL (8.4-10.2); CARBON DIOXIDE 26 mmol/L (22-30); CHLORIDE 104 mmol/L (98-107); GLUCOSE 105 mg/dL (75-110); POTASSIUM 4.4 mmol/L (3.6-5.0)
[2019-07-29] MEDS: VANCOMYCIN HCL 1,500 MG in DEXTROSE 5%-WATER 250 ML IV SCH ×2 (09:45→21:59)
[2019-07-29] MEDS: IBUPROFEN 600 MG TABLET PO PRN ×2 (09:46→16:02)
[2019-07-29] MEDS: METOPROLOL SUCCINATE 25 MG TAB.SR.24H PO SCH (09:46)
[2019-07-29] MEDS: SERTRALINE HCL 50 MG TABLET PO SCH (09:47)
[2019-07-29] MEDS ORDERED: FISH OIL PO SCH (10:00)
[2019-07-29] MEDS ORDERED: (PENDING PHARMACY ID) (Oxybutynin Chloride [Oxybutynin Chloride Er] 15 MG) PO SCH (10:00)
[2019-07-29] MEDS ORDERED: EPA PO SCH (10:00)
[2019-07-29] MEDS ORDERED: (PENDING PHARMACY ID) (Lisinopril [Zestril] 20 MG) PO SCH (10:00)
[2019-07-29] MEDS ORDERED: (PENDING PHARMACY ID) (Metformin Hcl [Metformin Hcl Er] 1,000 MG) PO SCH (10:00)
[2019-07-29] MEDS ORDERED: DHA PO SCH (10:00)
[2019-07-29] MEDS ORDERED: (PENDING PHARMACY ID) (Oxcarbazepine [Oxcarbazepine] 300 MG) PO SCH (10:00)
[2019-07-29] MEDS ORDERED: OMEGA PO SCH (10:00)
[2019-07-29] MEDS ORDERED: ATORVASTATIN CALCIUM 40 MG TABLET PO SCH (10:00)
[2019-07-29] MEDS: OMEGA-3 ACID ETHYL ESTERS 1 GM CAPSULE PO SCH ×2 (10:40→17:06)
[2019-07-29] MEDS: OXYBUTYNIN CHLORIDE 5 MG TABLET PO SCH (10:41)
[2019-07-29] MEDS: LISINOPRIL 10 MG TABLET PO SCH (10:42)
[2019-07-29] MEDS: OXCARBAZEPINE 150 MG TABLET PO SCH ×2 (10:42→21:59)
[2019-07-29] MEDS ORDERED: FENTANYL CITRATE INJ/PF 100 MCG/2 ML AMPUL IV PRN (14:02)
--- NOTE | 2019-07-29 14:17 | PDOC PROGRESS REPORT ---
Subjective Progress Note for:: 07/29/19 Subjective:: No adverse events overnight. No new complaints. No fevers. Appetite is been fair. She feels like the swelling is gone down her leg some. Reason For Visit: LEFT LEG CELLULITIS Physical Exam Vital Signs: Temp Pulse Resp BP Pulse Ox 97.9 F 57 L 16 132/81 H 97 07/29/19 12:00 07/29/19 12:00 07/29/19 12:00 07/29/19 12:00 07/29/19 12:00 Intake & Output 07/28/19 07/29/19 07/30/19 06:59 06:59 06:59 Intake Total 810 476 Balance 810 476 Weight 137.3 kg General appearance: PRESENT: no acute distress, cooperative, disheveled, morbidly obese Respiratory exam: PRESENT: clear to auscultation [place], symmetrical, unlabored. ABSENT: accessory muscle use, chest wall tenderness, crackles, prolonged expiratory phas, tachypnea, wheezes Cardiovascular exam: PRESENT: RRR, +S1, +S2 Pulses: PRESENT: normal carotid pulses Vascular exam: PRESENT: normal capillary refill GI/Abdominal exam: PRESENT: normal bowel sounds, soft. ABSENT: distended, guarding, rebound, tenderness Extremities exam: PRESENT: +1 edema - Left leg. ABSENT: clubbing, pedal edema Musculoskeletal exam: PRESENT: normal inspection. ABSENT: deformity Neurological exam: PRESENT: alert, awake, oriented to person, oriented to place, oriented to time, oriented to situation Psychiatric exam: PRESENT: appropriate affect, normal mood Skin exam: PRESENT: other - There is erythema of the left lower extremity distal to the knee that has receded from its original line of demarcation. There is significant sloughing of skin. There is 1+ edema distal to the knee. Results Laboratory Results: 07/29/19 04:51 07/29/19 04:51 07/29/19 07/29/19 04:51 04:51 WBC 4.9 RBC 4.57 Hgb 12.9 Hct 38.4 MCV 84 MCH 28.2 MCHC 33.5 RDW 15.4 H Plt Count 131 L Sodium 137.3 Potassium 4.4 Chloride 104 Carbon Dioxide 26 Anion Gap 7 BUN 19 Creatinine 0.76 Est GFR ( Amer) > 60 Glucose 105 Calcium 9.4 Impressions: Foot X-Ray 07/28/19 12:03 IMPRESSION: Moderate osteoarthritis of the midfoot. Moderate plantar calcaneal spur which can be seen with plantar fasciitis. No radiographic evidence of osteomyelitis. Tibia/Fibula X-Ray 07/28/19 12:03 IMPRESSION: No radiographic abnormality of the left lower leg. Assessment and Plan - Diagnosis (1) Cellulitis of left lower extremity Is this a current diagnosis for this admission?: Yes Plan: Responding to IV vancomycin. Blood cultures pending. (2) Non-insulin dependent diabetes mellitus Is this a current diagnosis for this admission?: Yes Plan: Continue metformin (3) Hypertension Qualifiers: Hypertension type: essential hypertension Qualified Code(s): I10 - Essential (primary) hypertension Is this a current diagnosis for this admission?: Yes Plan: Continue metoprolol and lisinopril (4) Hyperlipidemia Qualifiers: Hyperlipidemia type: other hyperlipidemia Qualified Code(s): E78.49 - Other hyperlipidemia; E78.4 - Other hyperlipidemia Is this a current diagnosis for this admission?: Yes Plan: Continue Crestor (5) Morbid obesity Is this a current diagnosis for this admission?: Yes Plan: I have strongly encourage lifestyle modification (6) Seizures Is this a current diagnosis for this admission?: Yes Plan: Continue oxcarbazepine (7) Urinary incontinence Qualifiers: Urinary Incontinence type: unspecified incontinence Qualified Code(s): R32 - Unspecified urinary incontinence Is this a current diagnosis for this admission?: Yes Plan: Continue oxybutynin - Time Time Spent with patient: 15-24 minutes
[2019-07-29] MEDS: GABAPENTIN 300 MG CAPSULE PO SCH ×2 (14:21→21:59)
[2019-07-29] MEDS: METFORMIN HCL 500 MG TABLET PO SCH (16:02)
[2019-07-29] MEDS ORDERED: METFORMIN HCL 500 MG TABLET PO SCH (17:00)
[2019-07-30 05:21] LABS: ANION GAP 6 (5-19); BLOOD UREA NITROGEN 20 mg/dL (7-20); CALCIUM 9.3 mg/dL (8.4-10.2); CARBON DIOXIDE 28 mmol/L (22-30); CHLORIDE 104 mmol/L (98-107); GLUCOSE 110 mg/dL (75-110); POTASSIUM 4.4 mmol/L (3.6-5.0)
[2019-07-30 05:23] LABS: HEMOGLOBIN 13.5 g/dL (12.0-15.5); MEAN CORPUSCULAR HEMOGLOBIN 28.6 pg (27.0-33.4); MEAN CORPUSCULAR HGB CONC 33.7 g/dL (32.0-36.0); MEAN CORPUSCULAR VOLUME 85 fl (80-97); PLATELET COUNT 128 10^3/uL (150-450); RED BLOOD COUNT 4.71 10^6/uL (3.72-5.28); RED CELL DISTRIBUTION WIDTH 15.3 % (11.5-14.0)
[2019-07-30] MEDS: HEPARIN SOD (PORCINE) 5,000 UNIT/ML 1 ML VIAL SUBCUT SCH ×3 (06:02→21:22)
[2019-07-30] MEDS: GABAPENTIN 300 MG CAPSULE PO SCH ×3 (06:16→21:22)
[2019-07-30] MEDS ORDERED: ATORVASTATIN CALCIUM 40 MG TABLET PO SCH (08:00)
[2019-07-30] MEDS ORDERED: (PENDING PHARMACY ID) (Rosuvastatin Calcium [Crestor 20 Mg Tablet] 20 MG) PO SCH (08:00)
[2019-07-30] MEDS: ATORVASTATIN CALCIUM 40 MG TABLET PO SCH (08:37)
[2019-07-30] MEDS: METFORMIN HCL 500 MG TABLET PO SCH ×2 (08:37→17:37)
[2019-07-30] MEDS: OMEGA-3 ACID ETHYL ESTERS 1 GM CAPSULE PO SCH ×2 (09:34→17:37)
[2019-07-30] MEDS: LISINOPRIL 10 MG TABLET PO SCH (09:34)
[2019-07-30] MEDS: METOPROLOL SUCCINATE 25 MG TAB.SR.24H PO SCH (09:35)
[2019-07-30] MEDS: SERTRALINE HCL 50 MG TABLET PO SCH (09:35)
[2019-07-30] MEDS: OXYBUTYNIN CHLORIDE 5 MG TABLET PO SCH (09:35)
[2019-07-30] MEDS: OXCARBAZEPINE 150 MG TABLET PO SCH ×2 (09:35→21:22)
[2019-07-30] MEDS: VANCOMYCIN HCL 1,500 MG in DEXTROSE 5%-WATER 250 ML IV SCH ×2 (09:38→21:22)
[2019-07-30 10:03] LABS: VANCOMYCIN,TROUGH 14.9 ug/mL (5.0-20.0)
[2019-07-30] MEDS: IBUPROFEN 600 MG TABLET PO PRN (17:37)
[2019-07-31] MEDS: HEPARIN SOD (PORCINE) 5,000 UNIT/ML 1 ML VIAL SUBCUT SCH ×3 (05:35→21:01)
[2019-07-31] MEDS: GABAPENTIN 300 MG CAPSULE PO SCH ×3 (05:38→21:04)
[2019-07-31] MEDS: IBUPROFEN 600 MG TABLET PO PRN ×2 (05:39→12:57)
[2019-07-31 06:16] LABS: HEMATOCRIT 38.2 % (36.0-47.0); HEMOGLOBIN 13.2 g/dL (12.0-15.5); MEAN CORPUSCULAR HEMOGLOBIN 29.4 pg (27.0-33.4); MEAN CORPUSCULAR HGB CONC 34.5 g/dL (32.0-36.0); MEAN CORPUSCULAR VOLUME 85 fl (80-97); PLATELET COUNT 118 10^3/uL (150-450); RED BLOOD COUNT 4.49 10^6/uL (3.72-5.28); RED CELL DISTRIBUTION WIDTH 15.5 % (11.5-14.0); WHITE BLOOD COUNT 3.9 10^3/uL (4.0-10.5)
[2019-07-31 06:47] LABS: ANION GAP 7 (5-19); BLOOD UREA NITROGEN 21 mg/dL (7-20); CALCIUM 9.5 mg/dL (8.4-10.2); CARBON DIOXIDE 27 mmol/L (22-30); CHLORIDE 104 mmol/L (98-107); GLUCOSE 106 mg/dL (75-110); POTASSIUM 4.2 mmol/L (3.6-5.0)
[2019-07-31] MEDS: METFORMIN HCL 500 MG TABLET PO SCH ×2 (09:38→16:58)
[2019-07-31] MEDS: OMEGA-3 ACID ETHYL ESTERS 1 GM CAPSULE PO SCH ×2 (09:38→16:59)
[2019-07-31] MEDS: METOPROLOL SUCCINATE 25 MG TAB.SR.24H PO SCH (09:38)
[2019-07-31] MEDS: ATORVASTATIN CALCIUM 40 MG TABLET PO SCH (09:38)
[2019-07-31] MEDS: OXCARBAZEPINE 150 MG TABLET PO SCH ×2 (09:39→21:04)
[2019-07-31] MEDS: OXYBUTYNIN CHLORIDE 5 MG TABLET PO SCH (09:39)
[2019-07-31] MEDS: LISINOPRIL 10 MG TABLET PO SCH (09:39)
[2019-07-31] MEDS: SERTRALINE HCL 50 MG TABLET PO SCH (09:39)
[2019-07-31] MEDS: VANCOMYCIN HCL 1,500 MG in DEXTROSE 5%-WATER 250 ML IV SCH ×2 (09:40→21:04)
--- NOTE | 2019-07-31 15:29 | PDOC PROGRESS REPORT ---
Subjective Progress Note for:: 07/30/19 Subjective:: No adverse events overnight. No new complaints. No fevers. Appetite has improved. She does not feel like her leg has changed substantially from yesterday. Reason For Visit: LEFT LEG CELLULITIS Physical Exam Vital Signs: Temp Pulse Resp BP Pulse Ox 98.7 F 59 L 12 126/64 H 98 07/31/19 12:08 07/31/19 12:08 07/31/19 12:08 07/31/19 12:08 07/31/19 12:08 Intake & Output 07/30/19 07/31/19 08/01/19 06:59 06:59 06:59 Intake Total 1496 1528 866 Balance 1496 1528 866 Weight 139.6 kg 139 kg General appearance: PRESENT: no acute distress, cooperative, disheveled, morbidly obese Respiratory exam: PRESENT: clear to auscultation [place], symmetrical, unlabored. ABSENT: accessory muscle use, chest wall tenderness, crackles, prolonged expiratory phas, tachypnea, wheezes Cardiovascular exam: PRESENT: RRR, +S1, +S2 Pulses: PRESENT: normal carotid pulses Vascular exam: PRESENT: normal capillary refill GI/Abdominal exam: PRESENT: normal bowel sounds, soft. ABSENT: distended, guarding, rebound, tenderness Extremities exam: PRESENT: +1 edema - Left leg. ABSENT: clubbing, pedal edema Musculoskeletal exam: PRESENT: normal inspection. ABSENT: deformity Neurological exam: PRESENT: alert, awake, oriented to person, oriented to place, oriented to time, oriented to situation Psychiatric exam: PRESENT: appropriate affect, normal mood Skin exam: PRESENT: other - There is erythema of the left lower extremity distal to the knee that has receded from its original line of demarcation. There is significant sloughing of skin. There is trace edema distal to the knee. Results Laboratory Results: 07/31/19 05:50 07/31/19 05:50 07/31/19 07/31/19 05:50 05:50 WBC 3.9 L RBC 4.49 Hgb 13.2 Hct 38.2 MCV 85 MCH 29.4 MCHC 34.5 RDW 15.5 H Plt Count 118 L Sodium 137.5 Potassium 4.2 Chloride 104 Carbon Dioxide 27 Anion Gap 7 BUN 21 H Creatinine 0.87 Est GFR ( Amer) > 60 Glucose 106 Calcium 9.5 07/28/19 12:38 Clean Catch Midstream Urine Culture - Final Escherichia Coli Group G Beta Streptococcus Impressions: Foot X-Ray 07/28/19 12:03 IMPRESSION: Moderate osteoarthritis of the midfoot. Moderate plantar calcaneal spur which can be seen with plantar fasciitis. No radiographic evidence of osteomyelitis. Tibia/Fibula X-Ray 07/28/19 12:03 IMPRESSION: No radiographic abnormality of the left lower leg. Assessment and Plan - Diagnosis (1) Cellulitis of left lower extremity Is this a current diagnosis for this admission?: Yes Plan: Responding to IV vancomycin. Blood cultures pending. (2) Non-insulin dependent diabetes mellitus Is this a current diagnosis for this admission?: Yes Plan: Continue metformin (3) Hypertension Qualifiers: Hypertension type: essential hypertension Qualified Code(s): I10 - Essential (primary) hypertension Is this a current diagnosis for this admission?: Yes Plan: Continue metoprolol and lisinopril (4) Hyperlipidemia Qualifiers: Hyperlipidemia type: other hyperlipidemia Qualified Code(s): E78.49 - Other hyperlipidemia; E78.4 - Other hyperlipidemia Is this a current diagnosis for this admission?: Yes Plan: Continue Crestor (5) Morbid obesity Is this a current diagnosis for this admission?: Yes Plan: I have strongly encourage lifestyle modification (6) Seizures Is this a current diagnosis for this admission?: Yes Plan: Continue oxcarbazepine (7) Urinary incontinence Qualifiers: Urinary Incontinence type: unspecified incontinence Qualified Code(s): R32 - Unspecified urinary incontinence Is this a current diagnosis for this admission?: Yes Plan: Continue oxybutynin - Time Time Spent with patient: 15-24 minutes
--- NOTE | 2019-07-31 15:33 | PDOC PROGRESS REPORT ---
Subjective Progress Note for:: 07/31/19 Subjective:: No adverse events overnight. No new complaints. No fevers. Appetite has improved. She does not feel like her leg has changed much over the past couple of days, but the swelling does seem to have gone down. She does not feel like the redness has spread. She is asking if she could give a hospital bed at home. I told her we would have case management look into it. Reason For Visit: LEFT LEG CELLULITIS Physical Exam Vital Signs: Temp Pulse Resp BP Pulse Ox 98.7 F 59 L 12 126/64 H 98 07/31/19 12:08 07/31/19 12:08 07/31/19 12:08 07/31/19 12:08 07/31/19 12:08 Intake & Output 07/30/19 07/31/19 08/01/19 06:59 06:59 06:59 Intake Total 1496 1528 866 Balance 1496 1528 866 Weight 139.6 kg 139 kg General appearance: PRESENT: no acute distress, cooperative, disheveled, morbidly obese Respiratory exam: PRESENT: clear to auscultation pay[place], symmetrical, unlabored. ABSENT: accessory muscle use, chest wall tenderness, crackles, prolonged expiratory phas, tachypnea, wheezes Cardiovascular exam: PRESENT: RRR, +S1, +S2 Pulses: PRESENT: normal carotid pulses Vascular exam: PRESENT: normal capillary refill GI/Abdominal exam: PRESENT: normal bowel sounds, soft. ABSENT: distended, gua rding, rebound, tenderness Extremities exam: PRESENT: +1 edema - Left leg. ABSENT: clubbing, pedal edema Musculoskeletal exam: PRESENT: normal inspection. ABSENT: deformity Neurological exam: PRESENT: alert, awake, oriented to person, oriented to place, oriented to time, oriented to situation Psychiatric exam: PRESENT: appropriate affect, normal mood Skin exam: PRESENT: other - There is erythema of the left lower extremity distal to the knee that has receded from its original line of demarcation. There is significant sloughing of skin. There is no edema distal to the knee. Results Laboratory Results: 07/31/19 05:50 07/31/19 05:50 07/31/19 07/31/19 05:50 05:50 WBC 3.9 L RBC 4.49 Hgb 13.2 Hct 38.2 MCV 85 MCH 29.4 MCHC 34.5 RDW 15.5 H Plt Count 118 L Sodium 137.5 Potassium 4.2 Chloride 104 Carbon Dioxide 27 Anion Gap 7 BUN 21 H Creatinine 0.87 Est GFR ( Amer) > 60 Glucose 106 Calcium 9.5 07/28/19 12:38 Clean Catch Midstream Urine Culture - Final Escherichia Coli Group G Beta Streptococcus Impressions: Foot X-Ray 07/28/19 12:03 IMPRESSION: Moderate osteoarthritis of the midfoot. Moderate plantar calcaneal spur which can be seen with plantar fasciitis. No radiographic evidence of osteomyelitis. Tibia/Fibula X-Ray 07/28/19 12:03 IMPRESSION: No radiographic abnormality of the left lower leg. Assessment and Plan - Diagnosis (1) Cellulitis of left lower extremity Is this a current diagnosis for this admission?: Yes Plan: She has been on vancomycin. There has been minimal improvement. She has had some reduction in the overall erythema and the swelling is gone. However, if she does not start to make substantial improvements in the next day or so, we may need to consider switching her antibiotics. Nothing is come out of her blood cultures, and there is no drainable fluid collection for culture specimen. (2) Non-insulin dependent diabetes mellitus Is this a current diagnosis for this admission?: Yes Plan: Continue metformin (3) Hypertension Qualifiers: Hypertension type: essential hypertension Qualified Code(s): I10 - Essential (primary) hypertension Is this a current diagnosis for this admission?: Yes Plan: Continue metoprolol and lisinopril (4) Hyperlipidemia Qualifiers: Hyperlipidemia type: other hyperlipidemia Qualified Code(s): E78.49 - Other hyperlipidemia; E78.4 - Other hyperlipidemia Is this a current diagnosis for this admission?: Yes Plan: Continue Crestor (5) Morbid obesity Is this a current diagnosis for this admission?: Yes Plan: I have strongly encourage lifestyle modification (6) Seizures Is this a current diagnosis for this admission?: Yes Plan: Continue oxcarbazepine (7) Urinary incontinence Qualifiers: Urinary Incontinence type: unspecified incontinence Qualified Code(s): R32 - Unspecified urinary incontinence Is this a current diagnosis for this admission?: Yes Plan: Continue oxybutynin - Time Time Spent with patient: 15-24 minutes
[2019-08-01] MEDS: HEPARIN SOD (PORCINE) 5,000 UNIT/ML 1 ML VIAL SUBCUT SCH ×3 (05:29→22:01)
[2019-08-01] MEDS: GABAPENTIN 300 MG CAPSULE PO SCH ×3 (06:48→22:07)
[2019-08-01] MEDS: METFORMIN HCL 500 MG TABLET PO SCH ×2 (08:23→16:59)
[2019-08-01] MEDS: ATORVASTATIN CALCIUM 40 MG TABLET PO SCH (08:24)
[2019-08-01] MEDS: VANCOMYCIN HCL 1,500 MG in DEXTROSE 5%-WATER 250 ML IV SCH (09:22)
[2019-08-01] MEDS: IBUPROFEN 600 MG TABLET PO PRN (09:23)
[2019-08-01] MEDS: METOPROLOL SUCCINATE 25 MG TAB.SR.24H PO SCH (09:23)
[2019-08-01] MEDS: SERTRALINE HCL 50 MG TABLET PO SCH (09:23)
[2019-08-01] MEDS: OXCARBAZEPINE 150 MG TABLET PO SCH ×2 (09:23→22:07)
[2019-08-01] MEDS: OMEGA-3 ACID ETHYL ESTERS 1 GM CAPSULE PO SCH ×2 (09:23→17:00)
[2019-08-01] MEDS: LISINOPRIL 10 MG TABLET PO SCH (09:23)
[2019-08-01] MEDS: OXYBUTYNIN CHLORIDE 5 MG TABLET PO SCH (09:24)
--- NOTE | 2019-08-01 14:12 | PDOC PROGRESS REPORT ---
Subjective Progress Note for:: 08/01/19 Subjective:: Mild improvement in swelling today. Reason For Visit: LEFT LEG CELLULITIS Physical Exam Vital Signs: Temp Pulse Resp BP Pulse Ox 98.6 F 59 L 20 96/60 L 93 08/01/19 11:59 08/01/19 11:59 08/01/19 11:59 08/01/19 14:01 08/01/19 11:59 Intake & Output 07/31/19 08/01/19 08/02/19 06:59 06:59 06:59 Intake Total 1528 2561 720 Balance 1528 2561 720 Weight 139 kg 138 kg General appearance: PRESENT: no acute distress, cooperative Respiratory exam: PRESENT: symmetrical, unlabored. ABSENT: accessory muscle use, retraction, tachypnea GI/Abdominal exam: PRESENT: soft. ABSENT: rebound, rigid, tenderness Extremities exam: PRESENT: other - Significant erythema around mild swelling of the left lower extremity from just below the left knee down to the toes. Does show improved clearing beyond the demarcated region. Neurological exam: PRESENT: alert, awake, oriented to person, oriented to place, oriented to time Results Laboratory Results: 07/31/19 05:50 07/31/19 05:50 Impressions: Foot X-Ray 07/28/19 12:03 IMPRESSION: Moderate osteoarthritis of the midfoot. Moderate plantar calcaneal spur which can be seen with plantar fasciitis. No radiographic evidence of osteomyelitis. Tibia/Fibula X-Ray 07/28/19 12:03 IMPRESSION: No radiographic abnormality of the left lower leg. Assessment and Plan - Diagnosis (1) Cellulitis of left lower extremity Is this a current diagnosis for this admission?: Yes Plan: She has been on vancomycin. She complains of itching with administration of vancomycin today. Given limited improvement with vancomycin and current complaints of pruritus, I will discontinue vancomycin and start patient on linezolid and cefepime. Cellulitic area has been demarcated and I will continue to monitor for improvement. Pain control as needed. Blood cultures reviewed which have been negative. (2) Bacteriuria Is this a current diagnosis for this admission?: Yes Plan: Uncertain the patient truly has an actual UTI. Urine culture is growing group G strep and E. coli. I will follow-up with her about urinary symptoms tomorrow. Either way, cefepime should cover this. (3) Hypotension Is this a current diagnosis for this admission?: Yes Plan: Hypotensive around noon today. However patient was not tachycardic at the time. I suspect this is probably due to her fentanyl rather than any worsening of her infection and not septic. I will opt to de-escalate her pain regimen once her pain seems to have been better controlled. We will discontinue fentanyl and place patient on tramadol. Will adjust medications as needed. Monitor blood pressure closely. (4) Hypertension Qualifiers: Hypertension type: essential hypertension Qualified Code(s): I10 - Essential (primary) hypertension Is this a current diagnosis for this admission?: Yes Plan: Already received metoprolol and lisinopril this morning. I will continue these medications but cautiously monitor blood pressure (5) Morbid obesity Is this a current diagnosis for this admission?: Yes (6) Non-insulin dependent diabetes mellitus Is this a current diagnosis for this admission?: Yes - Time Time Spent with patient: Less than 15 minutes
[2019-08-01] MEDS ORDERED: CEFEPIME 2 GM/D5W RTU 2 GM/50 ML RTUPB IV SCH (14:15)
[2019-08-01] MEDS: CEFEPIME HCL 2 GM in DEXTROSE 5%-WATER 50 ML IV SCH ×2 (14:55→22:06)
[2019-08-01] MEDS: LINEZOLID 600 MG/300 ML RTUPB IV SCH ×2 (16:26→22:38)
[2019-08-02] MEDS: HEPARIN SOD (PORCINE) 5,000 UNIT/ML 1 ML VIAL SUBCUT SCH ×4 (06:59→23:04)
[2019-08-02] MEDS: GABAPENTIN 300 MG CAPSULE PO SCH ×3 (08:02→22:54)
[2019-08-02] MEDS: ATORVASTATIN CALCIUM 40 MG TABLET PO SCH (08:02)
[2019-08-02] MEDS: METFORMIN HCL 500 MG TABLET PO SCH ×2 (08:02→17:41)
[2019-08-02] MEDS: OMEGA-3 ACID ETHYL ESTERS 1 GM CAPSULE PO SCH ×2 (10:18→17:41)
[2019-08-02] MEDS: LISINOPRIL 10 MG TABLET PO SCH (10:18)
[2019-08-02] MEDS: SERTRALINE HCL 50 MG TABLET PO SCH (10:19)
[2019-08-02] MEDS: METOPROLOL SUCCINATE 25 MG TAB.SR.24H PO SCH (10:19)
[2019-08-02] MEDS: OXYBUTYNIN CHLORIDE 5 MG TABLET PO SCH (10:20)
[2019-08-02] MEDS: OXCARBAZEPINE 150 MG TABLET PO SCH ×2 (10:20→22:54)
[2019-08-02] MEDS: CEFEPIME HCL 2 GM in DEXTROSE 5%-WATER 50 ML IV SCH ×2 (11:39→22:56)
[2019-08-02] MEDS: LINEZOLID 600 MG/300 ML RTUPB IV SCH (12:21)
[2019-08-02] MEDS: IBUPROFEN 600 MG TABLET PO PRN (12:24)
--- NOTE | 2019-08-02 14:41 | PDOC PROGRESS REPORT ---
Subjective Progress Note for:: 08/02/19 Subjective:: Patient is doing well today. Still complains of some pain in her left ankle when she puts pressure on it. Reason For Visit: LEFT LEG CELLULITIS Physical Exam Vital Signs: Temp Pulse Resp BP Pulse Ox 98.6 F 60 20 108/48 L 93 08/02/19 12:00 08/02/19 12:00 08/02/19 12:00 08/02/19 12:00 08/02/19 12:00 Intake & Output 08/01/19 08/02/19 08/03/19 06:59 06:59 06:59 Intake Total 2561 2370 710 Balance 2561 2370 710 Weight 138 kg 138 kg General appearance: PRESENT: no acute distress, cooperative Neck exam: ABSENT: JVD Respiratory exam: PRESENT: clear to auscultation payton Extremities exam: PRESENT: tenderness - LLE with erythema improving Neurological exam: PRESENT: alert, awake Skin exam: ABSENT: jaundice Results Laboratory Results: 07/31/19 05:50 07/31/19 05:50 07/28/19 12:43 Blood Blood Culture - Final NO GROWTH IN 5 DAYS 07/28/19 10:50 Blood Blood Culture - Final NO GROWTH IN 5 DAYS Impressions: Foot X-Ray 07/28/19 12:03 IMPRESSION: Moderate osteoarthritis of the midfoot. Moderate plantar calcaneal spur which can be seen with plantar fasciitis. No radiographic evidence of osteomyelitis. Tibia/Fibula X-Ray 07/28/19 12:03 IMPRESSION: No radiographic abnormality of the left lower leg. Assessment and Plan - Diagnosis (1) Cellulitis of left lower extremity Is this a current diagnosis for this admission?: Yes Plan: Cellulitis seems to have improved significantly since appearance yesterday. We will continue linezolid and cefepime for another day and then plan towards discharging patient tomorrow on oral antibiotics. (2) E. coli UTI Is this a current diagnosis for this admission?: Yes Plan: Patient acknowledges polyuria. E. coli growing on urine culture. Should be covered adequately with cefepime. (3) Hypotension Is this a current diagnosis for this admission?: Yes Plan: Resolved (4) Hypertension Qualifiers: Hypertension type: essential hypertension Qualified Code(s): I10 - Es sential (primary) hypertension Is this a current diagnosis for this admission?: Yes Plan: Continue metoprolol and lisinopril (5) Morbid obesity Is this a current diagnosis for this admission?: Yes (6) Non-insulin dependent diabetes mellitus Is this a current diagnosis for this admission?: Yes - Time Time Spent with patient: Less than 15 minutes
[2019-08-03] MEDS: LINEZOLID 600 MG/300 ML RTUPB IV SCH ×2 (00:06→11:01)
[2019-08-03] MEDS: TRAMADOL HCL 50 MG TABLET PO PRN ×2 (01:33→12:48)
[2019-08-03] MEDS: HEPARIN SOD (PORCINE) 5,000 UNIT/ML 1 ML VIAL SUBCUT SCH ×2 (05:54→14:06)
[2019-08-03] MEDS: GABAPENTIN 300 MG CAPSULE PO SCH ×2 (06:24→14:07)
[2019-08-03] MEDS: ATORVASTATIN CALCIUM 40 MG TABLET PO SCH (08:28)
[2019-08-03] MEDS: METFORMIN HCL 500 MG TABLET PO SCH (08:28)
[2019-08-03] MEDS: SERTRALINE HCL 50 MG TABLET PO SCH (10:16)
[2019-08-03] MEDS: OMEGA-3 ACID ETHYL ESTERS 1 GM CAPSULE PO SCH (10:16)
[2019-08-03] MEDS: CEFEPIME HCL 2 GM in DEXTROSE 5%-WATER 50 ML IV SCH (10:16)
[2019-08-03] MEDS: METOPROLOL SUCCINATE 25 MG TAB.SR.24H PO SCH (10:16)
[2019-08-03] MEDS: LISINOPRIL 10 MG TABLET PO SCH (10:16)
[2019-08-03] MEDS: OXYBUTYNIN CHLORIDE 5 MG TABLET PO SCH (10:17)
[2019-08-03] MEDS: OXCARBAZEPINE 150 MG TABLET PO SCH (10:17)
--- NOTE | 2019-08-03 12:01 | PDOC DISCHARGE SUMMARY ---
Impression - Admit/DC Date/PCP Admission Date/Primary Care Provider: 07/28/19 16:06 Discharge Date: 08/03/19 - Discharge Diagnosis (1) Cellulitis of left lower extremity Is this a current diagnosis for this admission?: Yes (2) E. coli UTI Is this a current diagnosis for this admission?: Yes (3) Osteoarthritis of left foot Is this a current diagnosis for this admission?: Yes (4) Hypotension Is this a current diagnosis for this admission?: Yes (5) Hypertension Is this a current diagnosis for this admission?: Yes (6) Morbid obesity Is this a current diagnosis for this admission?: Yes (7) Non-insulin dependent diabetes mellitus Is this a current diagnosis for this admission?: Yes - Additional Information Discharge Diet: As Tolerated Referrals: JANICE MORENO MD [COMMUNITY BASED STAFF] - Prescriptions: Ciprofloxacin HCl [Cipro 500 mg Tablet] 500 mg PO Q12 8 Days Diclofenac Sodium 4 gm TP TIDP PRN #100 g PRN Reason: Doxycycline Monohydrate 100 mg PO Q12 8 Days Home Medications: Oxcarbazepine 300 mg PO BID #14 tablet 01/09/18 Oxybutynin Chloride [Oxybutynin Chloride ER] 15 mg PO DAILY 01/09/18 Rosuvastatin Calcium [Crestor 20 mg Tablet] 20 mg PO QAM 01/09/18 Sertraline HCl [Zoloft 50 mg Tablet] 100 mg PO DAILY 01/09/18 Cholecalciferol (Vitamin D3) [Vitamin D3 1000 Unit Tablet] 50,000 units PO ASDIR PRN 07/28/19 Gabapentin [Neurontin 300 mg Capsule] 300 mg PO Q8 07/28/19 Lisinopril [Zestril] 20 mg PO DAILY 07/28/19 Meloxicam [Mobic] 15 mg PO QAM 07/28/19 Metformin HCl [Metformin HCl ER] 1,000 mg PO DAILY 07/28/19 Metoprolol Succinate [Toprol Xl 25 mg Tab.sr] 25 mg PO DAILY 07/28/19 [place]-3/Dha/Epa/Fish Oil [[place] 3 500 Softgel] 2 cap PO BID 07/28/19 Ciprofloxacin HCl [Cipro 500 mg Tablet] 500 mg PO Q12 8 Days 08/03/19 Diclofenac Sodium 4 gm TP TIDP PRN #100 g 08/03/19 Doxycycline Monohydrate 100 mg PO Q12 8 Days 08/03/19 Ibuprofen [Motrin 600 mg Tablet] 400 mg PO Q6HP PRN tablet 08/03/19 History of Present Illiness History of Present Illness: According to admitting provider: JUSTICE BENDER is a 59 year old female with a history of qpu-[id number]-wkuverhpw diabetes mellitus, hypertension, hyperlipidemia, morbid obesity, depression, seizures, and urinary incontinence who presents with a 2-day history of left leg redness and swelling. It is distal to the knee. She says she has had trouble with swelling in her legs for 20 years. She says normally she keeps it elevated and the swelling goes down. She said the last couple of days is gotten more red and swollen and she is having some sloughing of the skin. She is not been running any fevers. She is not noticed any exudates. She has no oozing or draining lesions. She does not remember a specific trauma to the skin. She has not been on any treatment for it. She first went to see an urgent care today and they sent her to the ER. Plain films were negative for evidence of osteomyelitis. Hospital Course Hospital Course: Patient was admitted and treated for swelling and redness of her left leg from foot all the way up to her knee. She was initially started on vancomycin. After receiving vancomycin for several days with only very slow improvement, antibiotic regimen was changed to linezolid and cefepime. Patient subsequently started to show remarkable improvement after being placed on this therapy. Blood cultures were negative. X-rays of the left leg done in the ER were negative for osteomyelitis. X-ray of her left foot was consistent with significant osteoarthritis which was likely the source of her continuous ankle pain. Patient is ambulatory. No evidence of leukocytosis currently. Patient also had urinalysis done in the ER which was positive for E. coli. She did endorse some urinary symptoms with polyuria. Patient has been discharged with ciprofloxacin and doxycycline for treatment of her cellulitis and UTI. She is also been given prescription for topical diclofenac to help with the osteoarthritis of her left foot. Physical Exam Vital Signs: Temp Pulse Resp BP Pulse Ox 98.3 F 60 16 114/58 L 94 08/03/19 07:16 08/03/19 07:16 08/03/19 07:16 08/03/19 07:16 08/03/19 07:16 Intake & Output 08/02/19 08/03/19 08/04/19 06:59 06:59 06:59 Intake Total 2370 2220 50 Balance 2370 2220 50 Weight 138 kg 138 kg General appearance: PRESENT: no acute distress, cooperative Neck exam: ABSENT: JVD Respiratory exam: PRESENT: clear to auscultation payton, unlabored Extremities exam: PRESENT: other - Redness of her left leg up to pulido right below the knee. Erythema seems to have improved significantly. Neurological exam: PRESENT: alert, awake, oriented to person, oriented to place, oriented to time Results Laboratory Results: WBC 3.9 10^3/uL (4.0-10.5) L 07/31/19 05:50 RBC 4.49 10^6/uL (3.72-5.28) 07/31/19 05:50 Hgb 13.2 g/dL (12.0-15.5) 07/31/19 05:50 Hct 38.2 % (36.0-47.0) 07/31/19 05:50 MCV 85 fl (80-97) 07/31/19 05:50 MCH 29.4 pg (27.0-33.4) 07/31/19 05:50 MCHC 34.5 g/dL (32.0-36.0) 07/31/19 05:50 RDW 15.5 % (11.5-14.0) H 07/31/19 05:50 Plt Count 118 10^3/uL (150-450) L 07/31/19 05:50 Lymph % (Auto) 16.5 % (13-45) 07/28/19 10:50 [place] % (Auto) 6.5 % (3-13) 07/28/19 10:50 Eos % (Auto) 0.0 % (0-6) 07/28/19 10:50 Baso % (Auto) 0.4 % (0-2) 07/28/19 10:50 Absolute Neuts (auto) 4.0 10^3/uL (1.7-8.2) 07/28/19 10:50 Absolute Lymphs (auto) 0.9 10^3/uL (0.5-4.7) 07/28/19 10:50 Absolute Monos (auto) 0.3 10^3/uL (0.1-1.4) 07/28/19 10:50 Absolute Eos (auto) 0.0 10^3/uL (0.0-0.6) 07/28/19 10:50 Absolute Basos (auto) 0.0 10^3/uL (0.0-0.2) 07/28/19 10:50 Seg Neutrophils % 76.6 % (42-78) 07/28/19 10:50 Sodium 137.5 mmol/L (137-145) 07/31/19 05:50 Potassium 4.2 mmol/L (3.6-5.0) 07/31/19 05:50 Chloride 104 mmol/L (98-107) 07/31/19 05:50 Carbon Dioxide 27 mmol/L (22-30) 07/31/19 05:50 Anion Gap 7 (5-19) 07/31/19 05:50 BUN 21 mg/dL (7-20) H 07/31/19 05:50 Creatinine 0.87 mg/dL (0.52-1.25) 07/31/19 05:50 Est GFR ( Amer) > 60 (>60) 07/31/19 05:50 Est GFR (MDRD) Non-Af > 60 (>60) 07/31/19 05:50 Glucose 106 mg/dL (75-110) 07/31/19 05:50 Calcium 9.5 mg/dL (8.4-10.2) 07/31/19 05:50 Total Bilirubin 0.4 mg/dL (0.2-1.3) 07/28/19 10:50 Direct Bilirubin 0.0 mg/dL (0.0-0.4) 07/28/19 10:50 Neonat Total Bilirubin Not Reportable 07/28/19 10:50 Neonat Direct Bilirubin Not Reportable 07/28/19 10:50 Neonat Indirect Bili Not Reportable 07/28/19 10:50 AST 20 U/L (14-36) 07/28/19 10:50 ALT 15 U/L (<35) 07/28/19 10:50 Alkaline Phosphatase 88 U/L (38-126) 07/28/19 10:50 Total Protein 6.6 g/dL (6.3-8.2) 07/28/19 10:50 Albumin 3.8 g/dL (3.5-5.0) 07/28/19 10:50 Urine Color YELLOW 07/28/19 12:38 Urine Appearance SLIGHTLY-CLOUDY 07/28/19 12:38 Urine pH 7.0 (5.0-9.0) 07/28/19 12:38 Ur Specific [place] 1.021 07/28/19 12:38 Urine Protein 30 mg/dL (NEGATIVE) H 07/28/19 12:38 Urine Glucose (UA) NEGATIVE mg/dL (NEGATIVE) 07/28/19 12:38 Urine Ketones NEGATIVE mg/dL (NEGATIVE) 07/28/19 12:38 Urine Blood NEGATIVE (NEGATIVE) 07/28/19 12:38 Urine Nitrite (Reflex) NEGATIVE (NEGATIVE) 07/28/19 12:38 Urine Bilirubin NEGATIVE (NEGATIVE) 07/28/19 12:38 Urine Urobilinogen 2.0 mg/dL (<2.0) H 07/28/19 12:38 Leukocyte Esterase Rfl LARGE (NEGATIVE) H 07/28/19 12:38 Urine RBC (Auto) 6 /HPF 07/28/19 12:38 Urine WBC (Reflex) 78 /HPF 07/28/19 12:38 Squamous Epi Cells Auto 2 /HPF 07/28/19 12:38 U Non-Squamous Epis Auto 1 /HPF 07/28/19 12:38 Urine Mucus (Auto) RARE /LPF 07/28/19 12:38 Urine Ascorbic Acid NEGATIVE (NEGATIVE) 07/28/19 12:38 Time Trough Drawn 0930 07/30/19 09:30 Vancomycin Trough 14.9 ug/mL (5.0-20.0) 07/30/19 09:30 Impressions: Foot X-Ray 07/28/19 12:03 IMPRESSION: Moderate osteoarthritis of the midfoot. Moderate plantar calcaneal spur which can be seen with plantar fasciitis. No radiographic evidence of osteomyelitis. Tibia/Fibula X-Ray 07/28/19 12:03 IMPRESSION: No radiographic abnormality of the left lower leg. Plan Time Spent: Less than 30 Minutes Stroke Is this a Stroke Patient?: No Acute Heart Failure - Is this a Heart Failure Patient?: No
[2019-08-03 13:45] VITALS: BP 108/48
== END 2019-08-03 14:10 | disposition home or self-care (01) | DRG 603 ==
LOC: ER 11:19 → EH 16:06 → 4S 18:16
PROVIDERS: ADMIT Family Medicine; ATTEND Internal Medicine
DX: L03.116 Cellulitis of left lower limb (principal); N39.0 Urinary tract infection, site not specified; M19.072 Primary osteoarthritis, left ankle and foot; B96.20 Unspecified Escherichia coli [E. coli] as the cause of diseases classified elsewhere; G40.909 Epilepsy, unspecified, not intractable, without status epilepticus; E78.5 Hyperlipidemia, unspecified; F32.9 Major depressive disorder, single episode, unspecified; I10 Essential (primary) hypertension; M77.32 Calcaneal spur, left foot; E11.9 Type 2 diabetes mellitus without complications; I48.91 Unspecified atrial fibrillation; Z90.49 Acquired absence of other specified parts of digestive tract; Z95.0 Presence of cardiac pacemaker; Z88.5 Allergy status to narcotic agent; Z88.2 Allergy status to sulfonamides; Z87.891 Personal history of nicotine dependence; E66.01 Morbid (severe) obesity due to excess calories; Z83.3 Family history of diabetes mellitus; Z82.49 Family history of ischemic heart disease and other diseases of the circulatory system; Z79.84 Long term (current) use of oral hypoglycemic drugs; Z79.899 Other long term (current) drug therapy
CPT/HCPCS: 36415; 80048; 80053; 80202; 81001; 85025; 85027; 87040; 87086; 87088; 87186; 96365; 96367; 99284; J0692; J1644; J2020; J2543; J3370; J7060

== ENCOUNTER 2019-09-14 15:03 | Inpatient (IN) | payer MEDICARE, MEDICAID ==
[2019-09-14 15:48] LABS: ABSOLUTE MONOCYTES (AUTO) 0.7 10^3/uL (0.1-1.4); ABSOLUTE NEUT (AUTO) 8.3 10^3/uL (1.7-8.2); BASOPHILS % (AUTO) 0.3 % (0-2); HEMATOCRIT 39.3 % (36.0-47.0); HEMOGLOBIN 12.9 g/dL (12.0-15.5); LYMPHOCYTES % (AUTO) 9.6 % (13-45); MEAN CORPUSCULAR HGB CONC 32.9 g/dL (32.0-36.0); MEAN CORPUSCULAR VOLUME 85 fl (80-97); MONOCYTES % (AUTO) 6.5 % (3-13); PLATELET COUNT 119 10^3/uL (150-450); RED BLOOD COUNT 4.61 10^6/uL (3.72-5.28); SEGMENTED NEUTROPHILS % (AUTO) 83.6 % (42-78); TOTAL CELLS COUNTED % (AUTO) 100 %
[2019-09-14 15:49] LABS: VENOUS BLOOD BASE EXCESS -1.8 mmol/L; VENOUS BLOOD HCO3 23.9 mmol/L (20-32); VENOUS BLOOD PCO2 43.7 mmHg (35-63); VENOUS BLOOD PH 7.36 (7.30-7.42)
[2019-09-14 16:06] LABS: INTERNATIONAL RATION (INR) 1.13; PROTHROMBIN TIME 14.8 SEC (11.4-15.4)
[2019-09-14 16:08] LABS: ALBUMIN 3.1 g/dL (3.5-5.0); ALKALINE PHOSPHATASE 71 U/L (38-126); ANION GAP 8 (5-19); ASPARTATE AMINO TRANSFERASE 22 U/L (14-36); BILIRUBIN,DIRECT 0.1 mg/dL (0.0-0.4); BILIRUBIN,TOTAL 0.5 mg/dL (0.2-1.3); BLOOD UREA NITROGEN 28 mg/dL (7-20); CALCIUM 8.9 mg/dL (8.4-10.2); CARBON DIOXIDE 24 mmol/L (22-30); CHLORIDE 104 mmol/L (98-107); GLUCOSE 103 mg/dL (75-110); TOTAL PROTEIN 5.9 g/dL (6.3-8.2)
[2019-09-14] MEDS ORDERED: PIPERACILLIN/TAZOBACTAM 3.375 GM VIAL IV ONE (16:16)
[2019-09-14] MEDS ORDERED: VANCOMYCIN HCL INJ 1000 MG VIAL IV ONE (16:16)
[2019-09-14] MEDS ORDERED: NORMAL SALINE 1000 ML 1,000 ML IV ONE (16:17)
--- NOTE | 2019-09-14 16:21 | ER Document Report ---
ED General - General Chief Complaint: Swelling of Lower Extremity Stated Complaint: RASH Time Seen by Provider: 09/14/19 15:53 Primary Care Provider: DANICA JULIEN FNP-C [Primary Care Provider] - Follow up as needed TRAVEL OUTSIDE OF THE [place] IN LAST 30 DAYS: No - HPI Patient complains to provider of: foot pain Notes: 59 y/o presenting to ED for evaluation of worsening pain/redness to LLE she reports that she has venous insufficiency and has chronic discoloration of her LLE up to about mid calf. now, she has redness almost all the way to the knee she denies fever but has had night sweats and chills she denies injury able to walk but w/ pain - Related Data Allergies/Adverse Reactions: morphine Allergy (Mild, Verified 09/14/19 15:36) Hives carbamazepine [From Tegretol] Allergy (Verified 09/14/19 15:36) sulfamethoxazole [From Bactrim] Allergy (Verified 09/14/19 15:36) trimethoprim [From Bactrim] Allergy (Verified 09/14/19 15:36) Past Medical History - Social History Smoking Status: Never Smoker Family History: Reviewed & Not Pertinent - Past Medical History Cardiac Medical History: Reports: Hx Atrial Fibrillation, Hx Hypercholesterolemia, Hx Hypertension Pulmonary Medical History: Reports: Hx COPD Neurological Medical History: Reports: Hx Seizures Endocrine Medical History: Reports: Hx Diabetes Mellitus Type 2 Renal/ Medical History: Denies: Hx Peritoneal Dialysis Psychiatric Medical History: Reports: Hx Depression Past Surgical History: Reports: Hx Appendectomy, Hx Cardiac Surgery - pacemaker, Hx Hysterectomy, Hx Tubal Ligation - Immunizations Hx Diphtheria, Pertussis, Tetanus Vaccination: Yes Review of Systems - Review of Systems Constitutional: Chills EENT: No symptoms reported Cardiovascular: No symptoms reported Respiratory: No symptoms reported Gastrointestinal: No symptoms reported Genitourinary: No symptoms reported Female Genitourinary: No symptoms reported Musculoskeletal: No symptoms reported Skin: Other - redness, pain Hematologic/Lymphatic: No symptoms reported Neurological/Psychological: No symptoms reported Physical Exam - Vital signs Vitals: Temp 99 F 09/14/19 15:23 Interpretation: Normal - General General appearance: Appears well, Alert - HEENT Head: Normocephalic, Atraumatic Eyes: Normal Pupils: PERRL - Respiratory Respiratory status: No respiratory distress Chest status: Nontender Breath sounds: Normal Chest palpation: Normal - Cardiovascular Rhythm: Regular Heart sounds: Normal auscultation Murmur: No - Abdominal Inspection: Normal Distension: No distension Bowel sounds: Normal Tenderness: Nontender Organomegaly: No organomegaly - Back Back: Normal, Nontender - Extremities General upper extremity: Normal inspection, Nontender, Normal color, Normal ROM, Normal temperature General lower extremity: Normal inspection, Nontender, Normal color, Normal ROM, Normal temperature, Normal weight bearing. No: Edil's sign - Neurological Neuro grossly intact: Yes Cognition: Normal Orientation: AAOx4 [place]i Coma Scale Eye Opening: Spontaneous [place] Coma Scale Verbal: Oriented [place] Coma Scale Motor: Obeys Commands [place] Coma Scale Total: 15 Speech: Normal Motor strength normal: LUE, RUE, LLE, RLE Sensory: Normal - Psychological Associated symptoms: Normal affect, Normal mood - Skin Skin Temperature: Hot Skin Moisture: Dry Skin Color: Erythema Notes: LLE has pulses intact, redness from toes basically to knee. warm to the touch Course - Re-evaluation Re-evalutation: 09/14/19 16:20 concern for sepsis from cellulitis vanc/zosyn started along with cultures and lactic for sepsis screening will xr L ankle and obtain duplex for possible gangrene and DVT respectively 09/14/19 17:49 no gas on plain film admit requested - Vital Signs Vital signs: Temp Pulse Resp BP Pulse Ox 99 F 57 L 18 102/48 L 99 09/14/19 15:26 09/14/19 15:26 09/14/19 15:26 09/14/19 15:26 09/14/19 15:26 - Laboratory Result Diagrams: 09/14/19 15:25 09/14/19 15:25 Laboratory results interpreted by me: 09/14/19 09/14/19 15:25 15:25 RDW 15.0 H Plt Count 119 L Lymph % (Auto) 9.6 L Absolute Neuts (auto) 8.3 H Seg Neutrophils % 83.6 H Sodium 135.6 L BUN 28 H Est GFR (MDRD) Non-Af 59 L Total Protein 5.9 L Albumin 3.1 L - Diagnostic Test Radiology reviewed: Image reviewed, Reports reviewed - EKG Interpretation by Me Additional EKG results interpreted by me: 09/14/19 16:21 NSR, rate of 60, no ST segment or T wave changes. normal R wave progression Discharge - Discharge Clinical Impression: Cellulitis Qualifiers: Site of cellulitis: extremity Site of cellulitis of extremity: lower extremity Laterality: left Qualified Code(s): L03.116 - Cellulitis of left lower limb Condition: Stable Disposition: ADMITTED INPATIENT Admitting Provider: Matthew (Hospitalist) Unit Admitted: Medical Floor Referrals: DANICA JULIEN FNP-C [Primary Care Provider] - Follow up as needed
--- NOTE | 2019-09-14 16:54 | RADIOLOGY REPORT (SQ) ---
EXAM DESCRIPTION: ANKLE LEFT AP/LATERAL IMAGES COMPLETED DATE/TIME: 09/14/2019 4:43 pm REASON FOR STUDY: redness/warmth COMPARISON: None. NUMBER OF VIEWS: Two views TECHNIQUE: AP and lateral radiographic images acquired of the left ankle. LIMITATIONS: None. FINDINGS: MINERALIZATION: Normal. BONES: No acute fracture or dislocation. No worrisome bone lesions. Incidental note is made of calc aneal enthesopathy and midfoot degenerative changes. JOINTS: No effusions. SOFT TISSUES: Circumferential soft tissue edema is present without retained radiopaque foreign body. OTHER: No other significant finding. IMPRESSION: Circumferential soft tissue edema without underlying acute osseous abnormality. TECHNICAL DOCUMENTATION: JOB ID: [id number] 2010 [employer]- All Rights Reserved Reading location - IP/workstation name: [email or web address]
--- NOTE | 2019-09-14 18:02 | EKG REPORT ---
SEVERITY:- NORMAL ECG - SINUS RHYTHM : Confirmed by: Yoly Frausto MD 14-Sep-2019 18:01:17
[2019-09-14] MEDS ORDERED: ONDANSETRON 4 MG TAB.RAPDIS PO PRN (18:55)
[2019-09-14] MEDS ORDERED: IPRATROPIUM/ALBUTEROL 0.5-2.5 MG/3 ML AMPUL NEB PRN (18:55)
[2019-09-14] MEDS ORDERED: ONDANSETRON HCL INJ/PF 4 MG/2 ML SDV IV PRN (18:55)
--- NOTE | 2019-09-14 19:02 | RADIOLOGY REPORT (SQ) ---
EXAM DESCRIPTION: VENOUS UNILATERAL LOWER IMAGES COMPLETED DATE/TIME: 09/14/2019 6:52 pm REASON FOR STUDY: redness/warmth LLE COMPARISON: None. TECHNIQUE: Dynamic and static powell scale and color images acquired of the left leg venous system. Se lected spectral images acquired with additional compression and augmentation maneuvers. The contralat eral common femoral vein and saphenofemoral junction were also imaged. Images stored on PACS. LIMITATIONS: None. FINDINGS: COMMON FEMORAL: Normal phasicity, compression and augmentation. No visualized echogenic ma terial on powell scale. No defects on color images. FEMORAL: Normal compression and augmentation. No visualized echogenic material on powell scale. No defe cts on color images. POPLITEAL: Normal compression, augmentation. No visualized echogenic material on powell scale. No defec ts on color images. CALF VESSELS: Normal compression, augmentation. No visualized echogenic material on powell scale. No de fects on color images. GSV and SSV: Normal compression, augmentation. No visualized echogenic material on powell scale. No def ects on color images. ANY DEEP VENOUS INSUFFICIENCY: Not evaluated. ANY EVIDENCE OF POPLITEAL CYST: No. OTHER: No other significant finding. CONTRALATERAL COMMON FEMORAL VEIN AND SAPHENOFEMORAL JUNCTION: Normal phasicity, compression and augmentation. No visualized echogenic material on powell scale. No de fects on color images. IMPRESSION: NO EVIDENCE OF DVT OR SVT IN THE LEFT LEG. TECHNICAL DOCUMENTATION: JOB ID: [id number] [employer]- All Rights Reserved Reading location - IP/workstation name: [email or web address]
--- NOTE | 2019-09-14 19:11 | ADVANCED CARE ---
- Diagnosis (1) Cellulitis of left lower extremity Diagnosis Current: Yes (2) Hyperlipidemia Diagnosis Current: Yes (3) Hypertension Diagnosis Current: Yes (4) Morbid obesity Diagnosis Current: Yes (5) Non-insulin dependent diabetes mellitus Diagnosis Current: Yes (6) Seizures Diagnosis Current: Yes (7) Paroxysmal A-fib Diagnosis Current: Yes (8) Pacemaker Diagnosis Current: Yes Attendance: Patient Resuscitation Status: Full Code Discussion: All aspects of code status discussed with patient/POA including cardioversion, chest compressions, and intubation and the patient/POA indicated they wish to be full code MPOA is designated as: Yusef, her son Time Spent: Greater than 17 minutes
--- NOTE | 2019-09-14 19:11 | PDOC H&P ---
History of Present Illness Admission Date/PCP: 09/14/19 17:57 DANICA JULIEN, WOLF-Daniela History of Present Illness: JUSTICE BENDER is a 59 year old female with past medical history of recurrent lower extremity cellulitis, type 2 diabetes, HTN, chronic BLE venous insufficiency, COPD, seizure disorder on Trileptal, A. fib with pacemaker reportedly taken off anticoagulation. Patient presents after a 3-day history of progressive redness/edema/pain in her left lower extremity consistent with multiple previous episodes of severe cellulitis. Patient has not seen any other physician or received any other antibiotics for this prior to visit to the ER. Patient denies any fevers/chills and WBC here is 10. During encounter, patient states she is taken herself off some of her medications not telling her physician including metformin and Pradaxa. She is unsure if her physician took her off Pradaxa or not for her A. fib. She denies any history of bleeding or other contraindications to this medication. Patient started on vancomycin/Zosyn by ED. PVL of LLE to rule out DVT showed no evidence of DVT. Left ankle x-ray showed Circumferential soft tissue edema without underlying bone abnormalities. Patient admitted for IV antibiotics. Past Medical History Cardiac Medical History: Reports: Atrial Fibrillation, Hyperlipidema, Hyper[place] Pulmonary Medical History: Reports: Chronic Obstructive Pulmonary Disease (COPD) Neurological Medical History: Reports: Seizures Endocrine Medical History: Reports: Diabetes Mellitus Type 2 Psychiatric Medical History: Reports: Depression Past Surgical History Past Surgical History: Reports: Appendectomy, Hysterectomy, Tubal Ligation Social History Smoking Status: Former Smoker Frequency of Alcohol Use: None Hx Recreational Drug Use: No Drugs: None Hx Prescription Drug Abuse: No - Advance Directive Resuscitation Status: Full Code Surrogate healthcare decision maker:: Yusef son Family History Family History: Reviewed & Not Pertinent, CAD Parental Family History Reviewed: Yes Children Family History Reviewed: Yes Sibling(s) Family History Reviewed.: Yes Medication/Allergy Home Medications: Oxybutynin Chloride [Oxybutynin Chloride ER] 15 mg PO DAILY 01/09/18 Rosuvastatin Calcium [Crestor 20 mg Tablet] 20 mg PO QAM 01/09/18 Sertraline HCl [Zoloft 50 mg Tablet] 100 mg PO DAILY 01/09/18 Cholecalciferol (Vitamin D3) [Vitamin D3 1000 Unit Tablet] 50,000 units PO ASDIR PRN 07/28/19 Gabapentin [Neurontin 300 mg Capsule] 300 mg PO Q8 07/28/19 Lisinopril [Zestril] 20 mg PO DAILY 07/28/19 Meloxicam [Mobic] 15 mg PO QAM 07/28/19 Metoprolol Succinate [Toprol Xl 25 mg Tab.sr] 25 mg PO DAILY 07/28/19 Augusta-3/Dha/Epa/Fish Oil [[place] 3 500 Softgel] 2 cap PO BID 07/28/19 Oxcarbazepine 300 mg PO Q12 09/14/19 Allergies/Adverse Reactions: morphine Allergy (Mild, Verified 09/14/19 15:36) Hives carbamazepine [From Tegretol] Allergy (Verified 09/14/19 15:36) sulfamethoxazole [From Bactrim] Allergy (Verified 09/14/19 15:36) trimethoprim [From Bactrim] Allergy (Verified 09/14/19 15:36) Review of Systems All systems: reviewed and no additional remarkable complaints except as stated - Review of systems per HPI, otherwise negative Physical Exam Vital Signs: Temp Pulse Resp BP Pulse Ox 99 F 57 L 18 102/48 L 97 09/14/19 15:26 09/14/19 15:26 09/14/19 15:26 09/14/19 15:26 09/14/19 17:59 Intake & Output 09/13/19 09/14/19 09/15/19 06:59 06:59 06:59 Intake Total 1000 Balance 1000 Weight 140.614 kg General appearance: PRESENT: no acute distress, cooperative, morbidly obese Head exam: PRESENT: atraumatic, normocephalic Eye exam: PRESENT: conjunctiva pink Mouth exam: PRESENT: moist Respiratory exam: PRESENT: clear to auscultation payton. ABSENT: rales, rhonchi, w heezes Cardiovascular exam: PRESENT: RRR. ABSENT: diastolic murmur, rubs, systolic murmur GI/Abdominal exam: PRESENT: normal bowel sounds, soft. ABSENT: distended, guarding, mass, organolmegaly, rebound, tenderness Extremities exam: PRESENT: pedal edema, tenderness, +2 edema, other - Marked erythema/edema/tenderness of left lower extremity extending up to the knee Neurological exam: PRESENT: alert, awake, oriented to person, oriented to place, oriented to time, oriented to situation Psychiatric exam: PRESENT: appropriate affect, normal mood Skin exam: PRESENT: dry, intact, warm Results Laboratory Results: 09/14/19 15:25 09/14/19 15:25 09/14/19 09/14/19 09/14/19 15:25 15:25 15:25 WBC 10.0 RBC 4.61 Hgb 12.9 Hct 39.3 MCV 85 MCH 28.0 MCHC 32.9 RDW 15.0 H Plt Count 119 L Seg Neutrophils % 83.6 H VBG pH 7.36 VBG pCO2 43.7 VBG HCO3 23.9 VBG Base Excess -1.8 Sodium 135.6 L Potassium 4.0 Chloride 104 Carbon Dioxide 24 Anion Gap 8 BUN 28 H Creatinine 0.96 Est GFR ( Amer) > 60 Glucose 103 Lactic Acid Calcium 8.9 Total Bilirubin 0.5 AST 22 Alkaline Phosphatase 71 Total Protein 5.9 L Albumin 3.1 L 09/14/19 09/14/19 15:25 18:14 WBC RBC Hgb Hct MCV MCH MCHC RDW Plt Count Seg Neutrophils % VBG pH VBG pCO2 VBG HCO3 VBG Base Excess Sodium Potassium Chloride Carbon Dioxide Anion Gap BUN Creatinine Est GFR ( Amer) Glucose Lactic Acid 0.7 0.7 Calcium Total Bilirubin AST Alkaline Phosphatase Total Protein Albumin 09/14/19 15:25 Troponin I < 0.012 Impressions: Ankle X-Ray 09/14/19 00:00 IMPRESSION: Circumferential soft tissue edema without underlying acute osseous abnormality. Venous Doppler Study 09/14/19 00:00 IMPRESSION: NO EVIDENCE OF DVT OR SVT IN THE LEFT LEG. Assessment and Plan - Diagnosis (1) Cellulitis of left lower extremity Is this a current diagnosis for this admission?: Yes Plan: 3-day history of progressive erythema/edema/pain left lower extremity Multiple admissions for this in the past presumably due to severe chronic venous insufficiency Started on vancomycin/cefepime Blood culture sent from ED No visible open wounds on legs (2) Hyperlipidemia Qualifiers: Hyperlipidemia type: other hyperlipidemia Qualified Code(s): E78.49 - Other hyperlipidemia; E78.4 - Other hyperlipidemia Is this a current diagnosis for this admission?: Yes Plan: Home meds (3) Hypertension Qualifiers: Hypertension type: essential hypertension Qualified Code(s): I10 - Essential (primary) hypertension Is this a current diagnosis for this admission?: Yes Plan: Home meds (4) Morbid obesity Is this a current diagnosis for this admission?: Yes Plan: Needs weight loss for better wound healing (5) Non-insulin dependent diabetes mellitus Is this a current diagnosis for this admission?: Yes Plan: States she took her self off metformin because of all of the "recalls that have been going on", did not tell her physician about this Accu-Cheks and sliding scale insulin (6) Seizures Is this a current diagnosis for this admission?: Yes Plan: Continue home Trileptal, patient unclear about dosing (7) Paroxysmal A-fib Is this a current diagnosis for this admission?: Yes Plan: Not on anticoagulation, per patient unclear if she took herself off of Pradaxa or her physician did this, she does not remember Paced rhythm on cardiac strip (8) Pacemaker Is this a current diagnosis for this admission?: Yes - Time Time Spent with patient: 35 or more minutes Medications reviewed and adjusted accordingly: Yes Anticipated Discharge Disposition: Home, Self Care Anticipated Discharge Timeframe: within 72 hours - Inpatient Certification Based on my medical assessment, after consideration of the patient's comorbidities, presenting symptoms, or acuity I expect that the services needed warrant INPATIENT care.: Yes I certify that my determination is in accordance with my understanding of Medicare's requirements for reasonable and necessary INPATIENT services [42 CFR 412.3e].: Yes Medical Necessity: Significant Comorbidiites Make Outpatient Treatment Too Risky, Need Close Monitoring Due to Risk of Patient Decompensation, Need for IV Antibiotics, Risk of Complication if Not Cared For in Hospital, Risk of Diagnosis Which Will Require Inpatient Eval/Care/Monitoring
[2019-09-14] MEDS: ACETAMINOPHEN 325 MG TABLET PO PRN (19:47)
[2019-09-14] MEDS ORDERED: CEFEPIME 2 GM/D5W RTU 2 GM/50 ML RTUPB IV SCH (22:00)
[2019-09-14] MEDS: INSULIN LISPRO 100 UNIT/ML 3 ML VIAL SUBCUT SCH (22:26)
[2019-09-14] MEDS: CEFEPIME HCL 2 GM in DEXTROSE 5%-WATER 50 ML IV SCH (22:29)
[2019-09-15] MEDS: ACETAMINOPHEN 325 MG TABLET PO PRN (01:19)
[2019-09-15] MEDS: CEFEPIME HCL 2 GM in DEXTROSE 5%-WATER 50 ML IV SCH ×3 (05:26→22:49)
[2019-09-15 06:17] LABS: ABSOLUTE LYMPHOCYTES (AUTO) 0.4 10^3/uL (0.5-4.7); ABSOLUTE MONOCYTES (AUTO) 0.4 10^3/uL (0.1-1.4); ABSOLUTE NEUT (AUTO) 5.5 10^3/uL (1.7-8.2); BASOPHILS % (AUTO) 0.2 % (0-2); EOSINOPHILS % (AUTO) 0.1 % (0-6); HEMATOCRIT 36.2 % (36.0-47.0); HEMOGLOBIN 11.9 g/dL (12.0-15.5); LYMPHOCYTES % (AUTO) 6.6 % (13-45); MEAN CORPUSCULAR HEMOGLOBIN 27.8 pg (27.0-33.4); MEAN CORPUSCULAR VOLUME 84 fl (80-97); MONOCYTES % (AUTO) 5.8 % (3-13); RED BLOOD COUNT 4.29 10^6/uL (3.72-5.28); RED CELL DISTRIBUTION WIDTH 15.1 % (11.5-14.0); SEGMENTED NEUTROPHILS % (AUTO) 87.3 % (42-78); TOTAL CELLS COUNTED % (AUTO) 100 %; WHITE BLOOD COUNT 6.3 10^3/uL (4.0-10.5)
[2019-09-15 06:32] LABS: ANION GAP 7 (5-19); BLOOD UREA NITROGEN 26 mg/dL (7-20); CALCIUM 8.6 mg/dL (8.4-10.2); CARBON DIOXIDE 23 mmol/L (22-30); CHLORIDE 107 mmol/L (98-107); GLUCOSE 100 mg/dL (75-110); PHOSPHORUS 3.4 mg/dL (2.5-4.5); POTASSIUM 3.5 mmol/L (3.6-5.0)
[2019-09-15] MEDS: VANCOMYCIN HCL 1,250 MG in DEXTROSE 5%-WATER 250 ML IV SCH ×2 (06:33→17:24)
[2019-09-15 06:37] LABS: PLATELET COUNT 91 10^3/uL (150-450)
[2019-09-15] MEDS: INSULIN LISPRO 100 UNIT/ML 3 ML VIAL SUBCUT SCH ×4 (08:13→22:05)
[2019-09-15] MEDS ORDERED: (PENDING PHARMACY ID) (Oxybutynin Chloride [Oxybutynin Chloride Er] 15 MG) PO SCH (10:00)
[2019-09-15] MEDS ORDERED: VANCOMYCIN HCL INJ 1000 MG VIAL IV SCH (10:00)
[2019-09-15] MEDS ORDERED: (PENDING PHARMACY ID) (Oxcarbazepine [Oxcarbazepine] 300 MG) PO SCH (10:00)
[2019-09-15] MEDS: ENOXAPARIN SODIUM INJ 40 MG/0.4 ML DISP.SYRIN SUBCUT SCH (10:37)
[2019-09-15] MEDS: RINGERS SOLUTION,LACTATED 1,000 ML IV PRN (10:44)
[2019-09-15] MEDS: OXCARBAZEPINE 150 MG TABLET PO SCH ×2 (10:44→21:51)
[2019-09-15] MEDS: SERTRALINE HCL 50 MG TABLET PO SCH (10:44)
[2019-09-15] MEDS: OMEGA-3 ACID ETHYL ESTERS 1 GM CAPSULE PO SCH (10:45)
[2019-09-15] MEDS ORDERED: IBUPROFEN 400 MG TABLET PO PRN (12:32)
[2019-09-15] MEDS: GABAPENTIN 300 MG CAPSULE PO SCH ×2 (13:30→21:51)
[2019-09-15] MEDS: OXYBUTYNIN CHLORIDE 5 MG TABLET PO SCH ×2 (13:30→21:51)
--- NOTE | 2019-09-15 16:59 | PDOC PROGRESS REPORT ---
Subjective Progress Note for:: 09/15/19 Subjective:: Patient admitted with cellulitis left lower extremity. She has notable improvement on exam today with much less bright erythema and the color is now consolidating in a darker red color. She also has wrinkles appearing along left lower extremity indicative of receding edema. Her blood pressure was lower limit normal today which is quite odd for her in particular given she is on multiple antihypertensives at home which are all held currently. I have to assume that this is due to her bacterial infection and her cellulitis. Based on this, I have started some gentle IV fluids which may need to be stopped if her edema acutely worsens. Patient has no new complaints and states her left lower extremity pain is slightly less today. Reason For Visit: LLE CELLULITIS Physical Exam Vital Signs: Temp Pulse Resp BP Pulse Ox 98.0 F 60 18 97/54 L 93 09/15/19 07:55 09/15/19 08:50 09/15/19 08:50 09/15/19 07:55 09/15/19 08:50 Intake & Output 09/14/19 09/15/19 09/16/19 06:59 06:59 06:59 Intake Total 1460 730 Output Total 500 401 Balance 960 329 Weight 133.6 kg General appearance: PRESENT: no acute distress, well-developed, well-nourished Head exam: PRESENT: atraumatic, normocephalic Eye exam: PRESENT: conjunctiva pink Mouth exam: PRESENT: moist Respiratory exam: PRESENT: clear to auscultation payton. ABSENT: rales, rhonchi, wheezes GI/Abdominal exam: PRESENT: normal bowel sounds, soft. ABSENT: distended, guarding, mass, organolmegaly, rebound, tenderness Extremities exam: PRESENT: pedal edema, tenderness - Left lower extremity edema tenderness and erythema, all improved today Neurological exam: PRESENT: alert, awake Psychiatric exam: PRESENT: appropriate affect, normal mood Skin exam: PRESENT: dry, intact, warm Results Laboratory Results: 09/15/19 05:06 09/15/19 05:06 09/14/19 09/14/19 09/15/19 18:14 21:20 05:06 WBC 6.3 RBC 4.29 Hgb 11.9 L Hct 36.2 MCV 84 MCH 27.8 MCHC 33.0 RDW 15.1 H Plt Count 91 L Seg Neutrophils % 87.3 H Sodium Potassium Chloride Carbon Dioxide Anion Gap BUN Creatinine Est GFR ( Amer) Glucose Lactic Acid 0.7 0.9 Calcium Phosphorus Magnesium 09/15/19 05:06 WBC RBC Hgb Hct MCV MCH MCHC RDW Plt Count Seg Neutrophils % Sodium 137.4 Potassium 3.5 L Chloride 107 Carbon Dioxide 23 Anion Gap 7 BUN 26 H Creatinine 0.89 Est GFR ( Amer) > 60 Glucose 100 Lactic Acid Calcium 8.6 Phosphorus 3.4 Magnesium 2.1 09/14/19 15:25 Troponin I < 0.012 Impressions: Ankle X-Ray 09/14/19 00:00 IMPRESSION: Circumferential soft tissue edema without underlying acute osseous abnormality. Venous Doppler Study 09/14/19 00:00 IMPRESSION: NO EVIDENCE OF DVT OR SVT IN THE LEFT LEG. Assessment and Plan - Diagnosis (1) Cellulitis of left lower extremity Is this a current diagnosis for this admission?: Yes Plan: 3-day history of progressive erythema/edema/pain left lower extremity Multiple admissions for this in the past presumably due to severe chronic venous insufficiency Started on vancomycin/cefepime Blood culture sent from ED No visible open wounds on legs 09/15/2019 Left lower extremity cellulitis notably improved with less erythema, less edema, slightly less tenderness Blood pressure lower limit normal in a patient typically on multiple antihypertensives that are all being held currently, added gentle IV fluids which may need to be stopped if edema worsens (2) Hyperlipidemia Qualifiers: Hyperlipidemia type: other hyperlipidemia Qualified Code(s): E78.49 - Other hyperlipidemia; E78.4 - Other hyperlipidemia Is this a current diagnosis for this admission?: Yes (3) Hypertension Qualifiers: Hypertension type: essential hypertension Qualified Code(s): I10 - Essential (primary) hypertension Is this a current diagnosis for this admission?: Yes Plan: Home meds currently being held for relative low blood pressure Restart meds as BP rises as appropriate (4) Morbid obesity Is this a current diagnosis for this admission?: Yes (5) Non-insulin dependent diabetes mellitus Is this a current diagnosis for this admission?: Yes (6) Seizures Is this a current diagnosis for this admission?: Yes (7) Paroxysmal A-fib Is this a current diagnosis for this admission?: Yes Plan: Not on anticoagulation, per patient unclear if she took herself off of Pradaxa or her physician did this, she does not remember Paced rhythm on cardiac strip May need to be placed on anticoagulant prior to discharge; she could get an evaluation for watchman device if she does not want anticoagulant permanently. (8) Pacemaker Is this a current diagnosis for this admission?: Yes - Time Time Spent with patient: 15-24 minutes Medications reviewed and adjusted accordingly: Yes Anticipated Discharge Disposition: Home, Self Care Anticipated Discharge Timeframe: within 48 hours - Inpatient Certification Based on my medical assessment, after consideration of the patient's comorbidities, presenting symptoms, or acuity I expect that the services needed warrant INPATIENT care.: Yes I certify that my determination is in accordance with my understanding of [employer] 's requirements for reasonable and necessary INPATIENT services [42 CFR 412.3e].: Yes Medical Necessity: Significant Comorbidiites Make Outpatient Treatment Too Risky, Need Close Monitoring Due to Risk of Patient Decompensation, Need For IV Fluids, Need for IV Antibiotics, Risk of Complication if Not Cared For in Hospital, Risk of Diagnosis Which Will Require Inpatient Eval/Care/Monitoring
[2019-09-15] MEDS ORDERED: PHENOL/SODIUM PHENOLATE 100 SPRAY/177 ML BOTTLE PO PRN (20:23)
[2019-09-15] MEDS: ATORVASTATIN CALCIUM 40 MG TABLET PO SCH (21:51)
[2019-09-16] MEDS: GABAPENTIN 300 MG CAPSULE PO SCH ×3 (05:15→21:41)
[2019-09-16] MEDS: CEFEPIME HCL 2 GM in DEXTROSE 5%-WATER 50 ML IV SCH ×3 (05:15→21:41)
[2019-09-16] MEDS: OXYBUTYNIN CHLORIDE 5 MG TABLET PO SCH ×3 (05:15→21:41)
[2019-09-16] MEDS: RINGERS SOLUTION,LACTATED 1,000 ML IV PRN (05:19)
[2019-09-16] MEDS: VANCOMYCIN HCL 1,250 MG in DEXTROSE 5%-WATER 250 ML IV SCH ×2 (05:19→17:58)
[2019-09-16] MEDS ORDERED: (PENDING PHARMACY ID) (Rosuvastatin Calcium [Crestor 20 Mg Tablet] 20 MG) PO SCH (08:00)
[2019-09-16] MEDS: INSULIN LISPRO 100 UNIT/ML 3 ML VIAL SUBCUT SCH ×4 (08:14→22:05)
[2019-09-16] MEDS: ENOXAPARIN SODIUM INJ 40 MG/0.4 ML DISP.SYRIN SUBCUT SCH (09:00)
[2019-09-16] MEDS: OMEGA-3 ACID ETHYL ESTERS 1 GM CAPSULE PO SCH (09:04)
[2019-09-16] MEDS: SERTRALINE HCL 50 MG TABLET PO SCH (09:04)
[2019-09-16] MEDS: OXCARBAZEPINE 150 MG TABLET PO SCH ×2 (09:04→21:41)
[2019-09-16] MEDS: ACETAMINOPHEN 325 MG TABLET PO PRN (09:06)
--- NOTE | 2019-09-16 15:59 | PDOC PROGRESS REPORT ---
Subjective Progress Note for:: 09/16/19 Reason For Visit: LLE CELLULITIS Physical Exam Vital Signs: Temp Pulse Resp BP Pulse Ox 98.3 F 66 12 93/51 L 87 L 09/16/19 11:00 09/16/19 11:00 09/16/19 11:00 09/16/19 11:00 09/16/19 11:00 Intake & Output 09/15/19 09/16/19 09/17/19 06:59 06:59 06:59 Intake Total 1460 3218 420 Output Total 500 1601 700 Balance 960 1617 -280 Weight 133.6 kg 137.1 kg General appearance: PRESENT: no acute distress, cooperative, obese. ABSENT: severe distress Neck exam: ABSENT: JVD Respiratory exam: PRESENT: clear to auscultation payton, unlabored. ABSENT: tachypnea, wheezes Cardiovascular exam: PRESENT: RRR, +S1, +S2. ABSENT: tachycardia Extremities exam: PRESENT: other - left lower extremity with erythema up to the knee and slightly above the knee with swelling and mild warmth. Also has skin peeling. Some white plaques within the webs of her toes Neurological exam: PRESENT: alert, awake, oriented to person, oriented to place, oriented to time Results Laboratory Results: 09/15/19 05:06 09/15/19 05:06 09/14/19 15:25 Troponin I < 0.012 Impressions: Ankle X-Ray 09/14/19 00:00 IMPRESSION: Circumferential soft tissue edema without underlying acute osseous abnormality. Venous Doppler Study 09/14/19 00:00 IMPRESSION: NO EVIDENCE OF DVT OR SVT IN THE LEFT LEG. Assessment and Plan - Diagnosis (1) Cellulitis of left lower extremity Is this a current diagnosis for this admission?: Yes Plan: Blood cultures are negative so far. No clear open wounds on the legs. No drainage from the leg either. She does have small plaques in between the webs of her toes and some crusting of her toenails. I will send a SHABNAM prep twice as these to see if she will require antifungal therapy as well which may ultimately help prevent future recurrence. Have encouraged her to see a calender worker helper after discharge. Continue IV antibiotics for now. I have demarcated the area of involvement of the cellulitis. If continues to improve, can be switched to oral antibiotics soon. (2) Paroxysmal A-fib Is this a current diagnosis for this admission?: Yes (3) Hypertension Qualifiers: Hypertension type: essential hypertension Qualified Code(s): I10 - Essential (primary) hypertension Is this a current diagnosis for this admission?: Yes Plan: Continue home meds. (4) Morbid obesity Is this a current diagnosis for this admission?: Yes (5) Seizures Is this a current diagnosis for this admission?: Yes - Time Time Spent with patient: Less than 15 minutes Anticipated Discharge Disposition: Home, Self Care Anticipated Discharge Timeframe: within 36 hours
[2019-09-16 18:27] LABS: VANCOMYCIN,TROUGH 12.1 ug/mL (5.0-20.0)
[2019-09-16] MEDS: ATORVASTATIN CALCIUM 40 MG TABLET PO SCH (21:41)
[2019-09-17] MEDS: RINGERS SOLUTION,LACTATED 1,000 ML IV PRN (04:00)
[2019-09-17] MEDS: OXYBUTYNIN CHLORIDE 5 MG TABLET PO SCH ×3 (06:16→22:16)
[2019-09-17] MEDS: CEFEPIME HCL 2 GM in DEXTROSE 5%-WATER 50 ML IV SCH ×3 (06:17→22:16)
[2019-09-17] MEDS: GABAPENTIN 300 MG CAPSULE PO SCH ×3 (06:17→22:16)
[2019-09-17] MEDS: VANCOMYCIN HCL 1,250 MG in DEXTROSE 5%-WATER 250 ML IV SCH ×2 (06:18→17:37)
[2019-09-17] MEDS: INSULIN LISPRO 100 UNIT/ML 3 ML VIAL SUBCUT SCH ×4 (08:16→23:09)
[2019-09-17] MEDS: OMEGA-3 ACID ETHYL ESTERS 1 GM CAPSULE PO SCH (09:59)
[2019-09-17] MEDS: OXCARBAZEPINE 150 MG TABLET PO SCH ×2 (09:59→22:16)
[2019-09-17] MEDS: SERTRALINE HCL 50 MG TABLET PO SCH (09:59)
[2019-09-17] MEDS: ENOXAPARIN SODIUM INJ 40 MG/0.4 ML DISP.SYRIN SUBCUT SCH (10:01)
--- NOTE | 2019-09-17 12:33 | PDOC PROGRESS REPORT ---
Subjective Progress Note for:: 09/17/19 Subjective:: Patient complains of legs hurting earlier today when the room was cold. States that her leg hurts more than the cold and often turns bluish before returning back to reddish. She denies history or prior diagnosis of Raynauds. Reason For Visit: LLE CELLULITIS Physical Exam Vital Signs: Temp Pulse Resp BP Pulse Ox 98.4 F 42 L 14 122/56 L 96 09/17/19 07:27 09/17/19 07:27 09/17/19 07:27 09/17/19 07:27 09/17/19 07:27 Intake & Output 09/16/19 09/17/19 09/18/19 06:59 06:59 06:59 Intake Total 3218 2250 Output Total 1601 2100 Balance 1617 150 Weight 137.1 kg 136 kg General appearance: PRESENT: no acute distress, cooperative Neck exam: ABSENT: JVD Respiratory exam: PRESENT: unlabored. ABSENT: accessory muscle use, retraction, tachypnea Extremities exam: PRESENT: other - Erythema of the left leg pretty much about the same as it was yesterday. Neurological exam: PRESENT: alert, awake, oriented to person, oriented to place, oriented to time Results Laboratory Results: 09/15/19 05:06 09/16/19 17:55 09/16/19 17:55 Creatinine 0.79 Est GFR ( Amer) > 60 09/14/19 15:25 Troponin I < 0.012 Impressions: Ankle X-Ray 09/14/19 00:00 IMPRESSION: Circumferential soft tissue edema without underlying acute osseous abnormality. Venous Doppler Study 09/14/19 00:00 IMPRESSION: NO EVIDENCE OF DVT OR SVT IN THE LEFT LEG. Assessment and Plan - Diagnosis (1) Cellulitis of left lower extremity Is this a current diagnosis for this admission?: Yes Plan: Blood cultures are negative so far. No clear open wounds on the legs. No drainage from the leg either. SHABNAM prep of scrapings from foot were negative for fungal infection. Have encouraged her to see a manager of allied health services after discharge. Continue IV antibiotics for now. I have demarcated the area of involvement of the cellulitis appears similar to appearance yesterday. (2) Paroxysmal A-fib Is this a current diagnosis for this admission?: Yes Plan: Not on anticoagulation, per patient unclear if she took herself off of Pradaxa or her physician did this, she does not remember Paced rhythm on cardiac strip Outpatient follow-up with her primary care provider/air press operator to determine anticoagulation needs (3) Hypertension Qualifiers: Hypertension type: essential hypertension Qualified Code(s): I10 - Essential (primary) hypertension Is this a current diagnosis for this admission?: Yes Plan: Patient's BP has actually remained soft and as such Toprol-XL and lisinopril have remained on hold. (4) Morbid obesity Is this a current diagnosis for this admission?: Yes Plan: Weight loss and proper dietingwill be helpful to address patient's venous insufficiency (5) Seizures Is this a current diagnosis for this admission?: Yes Plan: Continue home Trileptal (6) Raynaud phenomenon Qualifiers: Raynaud?s-associated gangrene presence: without gangrene Qualified Code(s): I73.00 - Raynaud's syndrome without gangrene Is this a current diagnosis for this admission?: Yes Plan: Denies history of Raynaud's disease. Endorses leg turns blue and hurts when he gets cold. I will monitor. Check GAGAN. Unfortunately, BP will not allow me to initiate amlodipine/nifedipine. - Time Time Spent with patient: Less than 15 minutes Anticipated Discharge Disposition: Home, Self Care Anticipated Discharge Timeframe: within 48 hours
[2019-09-17] MEDS: ACETAMINOPHEN 325 MG TABLET PO PRN (18:41)
[2019-09-17] MEDS: ATORVASTATIN CALCIUM 40 MG TABLET PO SCH (22:16)
[2019-09-18] MEDS: OXYBUTYNIN CHLORIDE 5 MG TABLET PO SCH ×3 (05:24→21:12)
[2019-09-18] MEDS: GABAPENTIN 300 MG CAPSULE PO SCH ×3 (05:24→21:12)
[2019-09-18] MEDS: CEFEPIME HCL 2 GM in DEXTROSE 5%-WATER 50 ML IV SCH ×2 (05:24→13:13)
[2019-09-18] MEDS: VANCOMYCIN HCL 1,250 MG in DEXTROSE 5%-WATER 250 ML IV SCH ×2 (05:27→17:26)
[2019-09-18] MEDS: INSULIN LISPRO 100 UNIT/ML 3 ML VIAL SUBCUT SCH ×4 (09:04→22:10)
[2019-09-18] MEDS: ENOXAPARIN SODIUM INJ 40 MG/0.4 ML DISP.SYRIN SUBCUT SCH (09:21)
[2019-09-18] MEDS: SERTRALINE HCL 50 MG TABLET PO SCH (09:23)
[2019-09-18] MEDS: OMEGA-3 ACID ETHYL ESTERS 1 GM CAPSULE PO SCH (09:24)
[2019-09-18] MEDS: OXCARBAZEPINE 150 MG TABLET PO SCH ×2 (09:24→21:12)
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
[2019-09-18] MEDS: ACETAMINOPHEN 325 MG TABLET PO PRN (17:25)
[2019-09-18] MEDS: ATORVASTATIN CALCIUM 40 MG TABLET PO SCH (21:12)
[2019-09-19] MEDS: VANCOMYCIN HCL 1,250 MG in DEXTROSE 5%-WATER 250 ML IV SCH (05:10)
[2019-09-19] MEDS: GABAPENTIN 300 MG CAPSULE PO SCH ×2 (05:10→13:40)
[2019-09-19] MEDS: OXYBUTYNIN CHLORIDE 5 MG TABLET PO SCH ×2 (05:10→13:40)
[2019-09-19] MEDS: ACETAMINOPHEN 325 MG TABLET PO PRN (06:22)
[2019-09-19] MEDS: INSULIN LISPRO 100 UNIT/ML 3 ML VIAL SUBCUT SCH ×2 (08:37→13:38)
[2019-09-19] MEDS: ENOXAPARIN SODIUM INJ 40 MG/0.4 ML DISP.SYRIN SUBCUT SCH (09:47)
[2019-09-19] MEDS: OMEGA-3 ACID ETHYL ESTERS 1 GM CAPSULE PO SCH (09:48)
[2019-09-19] MEDS: SERTRALINE HCL 50 MG TABLET PO SCH (09:48)
[2019-09-19] MEDS: OXCARBAZEPINE 150 MG TABLET PO SCH (09:48)
--- NOTE | 2019-09-19 12:32 | PDOC DISCHARGE SUMMARY ---
Impression - Admit/DC Date/PCP Admission Date/Primary Care Provider: 09/14/19 17:57 LUPE SULTANA Discharge Date: 09/19/19 - Discharge Diagnosis (1) Cellulitis of left lower extremity Is this a current diagnosis for this admission?: Yes (2) Hypertension Is this a current diagnosis for this admission?: Yes (3) Morbid obesity Is this a current diagnosis for this admission?: Yes (4) Paroxysmal A-fib Is this a current diagnosis for this admission?: Yes (5) Raynaud phenomenon Is this a current diagnosis for this admission?: Yes (6) Seizures Is this a current diagnosis for this admission?: Yes - Additional Information Resuscitation Status: Full Code Discharge Diet: Cardiac Discharge Activity: Activity As Tolerated, Balance Activity w/Rest, Keep Legs Elevated - When possible Referrals: DANICA JULIEN FNP-C [Primary Care Provider] - 09/28/19 12:20 pm Prescriptions: Doxycycline Hyclate [Vibramycin 100 mg Tablet] 100 mg PO BID #14 tablet Home Medications: Oxybutynin Chloride [Oxybutynin Chloride ER] 15 mg PO DAILY 01/09/18 Rosuvastatin Calcium [Crestor 20 mg Tablet] 20 mg PO QAM 01/09/18 Sertraline HCl [Zoloft 50 mg Tablet] 100 mg PO DAILY 01/09/18 Gabapentin [Neurontin 300 mg Capsule] 300 mg PO Q8 07/28/19 Lisinopril [Zestril] 20 mg PO DAILY 07/28/19 Meloxicam [Mobic] 15 mg PO QAM 07/28/19 Metoprolol Succinate [Toprol Xl 25 mg Tab.sr] 25 mg PO DAILY 07/28/19 Diclofenac Sodium 2 gm TP QIDP PRN 09/14/19 [place]-3 Acid Ethyl Esters [Lovaza 1 gm Capsule] 1 gm PO DAILY 09/14/19 Oxcarbazepine 300 mg PO Q12 09/14/19 Doxycycline Hyclate [Vibramycin 100 mg Tablet] 100 mg PO BID #14 tablet 09/19/19 Phenol/Sodium Phenolate [Chloraseptic Sore Throat [place] 177 ml] 2 spray PO Q2HP PRN bottle 09/19/19 History of Present Illiness History of Present Illness: JUSTICE BENDER is a 59 year old female JUSTICE BENDER is a 59 year old female with past medical history of recurrent lower extremity cellulitis, type 2 diabetes, HTN, chronic BLE venous insufficiency, COPD, seizure disorder on Trileptal, A. fib with pacemaker reportedly taken off anticoagulation. Patient presents after a 3-day history of progressive redness/edema/pain in her left lower extremity consistent with multiple previous episodes of severe cellulitis. Patient has not seen any other physician or received any other antibiotics for this prior to visit to the ER. Patient denies any fevers/chills and WBC here is 10. During encounter, patient states she is taken herself off some of her medications not telling her physician including metformin and Pradaxa. She is unsure if her physician took her off Pradaxa or not for her A. fib. She denies any history of bleeding or other contraindications to this medication. Patient started on vancomycin/Zosyn by ED. PVL of LLE to rule out DVT showed no evidence of DVT. Left ankle x-ray showed Circumferential soft tissue edema without underlying bone abnormalities. Patient admitted for IV antibiotics. Hospital Course Hospital Course: (1) Cellulitis of left lower extremity Is this a current diagnosis for this admission?: Yes Plan: Blood cultures are negative so far. No clear open wounds on the legs. No drainage from the leg either. SHABNAM prep of scrapings from foot were negative for fungal infection. Have encouraged her to see a advertising sales associate after discharge. Continue IV vancomycin. Will discontinue cefepime. Plan to switch to oral antibiotics tomorrow. Demarcated area of cellulitis shows improvement as compared to yesterday with some central clearing just below the knee. (2) Paroxysmal A-fib Is this a current diagnosis for this admission?: Yes Plan: Not on anticoagulation, per patient unclear if she took herself off of Pradaxa or her physician did this, she does not remember Paced rhythm on cardiac strip Outpatient follow-up with her primary care provider/speedometer inspector to determine anticoagulation needs (3) Hypertension Qualifiers: Hypertension type: essential hypertension Qualified Code(s): I10 - Essential (primary) hypertension Is this a current diagnosis for this admission?: Yes Plan: Patient's BP has actually remained soft and as such Toprol-XL and lisinopril have remained on hold. (4) Morbid obesity Is this a current diagnosis for this admission?: Yes Plan: Weight loss and proper dietingwill be helpful to address patient's venous insufficiency (5) Seizures Is this a current diagnosis for this admission?: Yes Plan: Continue home Trileptal (6) Raynaud phenomenon Qualifiers: Raynaud?s-associated gangrene presence: without gangrene Qualified Code(s): I73.00 - Raynaud's syndrome without gangrene Is this a current diagnosis for this admission?: Yes Plan: Denies history of Raynaud's disease. Endorses leg turns blue and hurts when he gets cold. I will monitor. GAGAN sent. May help patient to initiate amlodipine/nifedipine once BP can tolerate. Physical Exam Vital Signs: Temp Pulse Resp BP Pulse Ox 97.9 F 60 15 128/56 H 95 09/19/19 07:29 09/19/19 07:29 09/19/19 07:29 09/19/19 07:29 09/19/19 07:29 Intake & Output 09/18/19 09/19/19 09/20/19 06:59 06:59 06:59 Intake Total 2650 2590 250 Output Total 2100 2024 Balance 550 565 250 Weight 138.2 kg 133.6 kg General appearance: PRESENT: cooperative, mild distress Head exam: PRESENT: atraumatic, normocephalic Respiratory exam: PRESENT: clear to auscultation [place], symmetrical, unlabored. ABSENT: prolonged expiratory phas, rales, rhonchi, tachypnea, wheezes Cardiovascular exam: PRESENT: RRR, +S1, +S2. ABSENT: bradycardia, diastolic murmur, irregular rhythm, systolic murmur, tachycardia GI/Abdominal exam: PRESENT: normal bowel sounds, soft. ABSENT: distended, guarding, mass, tenderness Rectal exam: PRESENT: deferred Gentrourinary exam: ABSENT: indwelling catheter Extremities exam: PRESENT: +1 edema Musculoskeletal exam: PRESENT: ambulatory. ABSENT: deformity, dislocation Neurological exam: PRESENT: alert, awake, oriented to person, oriented to place, oriented to time, oriented to situation, CN II-XII grossly intact. ABSENT: altered Psychiatric exam: PRESENT: flat affect. ABSENT: agitated, anxious Focused psych exam: ABSENT: delusional, paranoid, restlessness Skin exam: PRESENT: erythema - Left leg still with erythema and very dry skin. Erythema has receded from the outlined margins somewhat, other - Dry scaly skin distal left leg and foot Results Laboratory Results: WBC 6.3 10^3/uL (4.0-10.5) 09/15/19 05:06 RBC 4.29 10^6/uL (3.72-5.28) 09/15/19 05:06 Hgb 11.9 g/dL (12.0-15.5) L 09/15/19 05:06 Hct 36.2 % (36.0-47.0) 09/15/19 05:06 MCV 84 fl (80-97) 09/15/19 05:06 MCH 27.8 pg (27.0-33.4) 09/15/19 05:06 MCHC 33.0 g/dL (32.0-36.0) 09/15/19 05:06 RDW 15.1 % (11.5-14.0) H 09/15/19 05:06 Plt Count 91 10^3/uL (150-450) L 09/15/19 05:06 Lymph % (Auto) 6.6 % (13-45) L 09/15/19 05:06 Rains % (Auto) 5.8 % (3-13) 09/15/19 05:06 Eos % (Auto) 0.1 % (0-6) 09/15/19 05:06 Baso % (Auto) 0.2 % (0-2) 09/15/19 05:06 Absolute Neuts (auto) 5.5 10^3/uL (1.7-8.2) 09/15/19 05:06 Absolute Lymphs (auto) 0.4 10^3/uL (0.5-4.7) L 09/15/19 05:06 Absolute Monos (auto) 0.4 10^3/uL (0.1-1.4) 09/15/19 05:06 Absolute Eos (auto) 0.0 10^3/uL (0.0-0.6) 09/15/19 05:06 Absolute Basos (auto) 0.0 10^3/uL (0.0-0.2) 09/15/19 05:06 Seg Neutrophils % 87.3 % (42-78) H 09/15/19 05:06 PT 14.8 SEC (11.4-15.4) 09/14/19 15:25 INR 1.13 09/14/19 15:25 VBG pH 7.36 (7.30-7.42) 09/14/19 15:25 VBG pCO2 43.7 mmHg (35-63) 09/14/19 15:25 VBG HCO3 23.9 mmol/L (20-32) 09/14/19 15:25 VBG Base Excess -1.8 mmol/L 09/14/19 15:25 Sodium 137.4 mmol/L (137-145) 09/15/19 05:06 Potassium 3.5 mmol/L (3.6-5.0) L 09/15/19 05:06 Chloride 107 mmol/L (98-107) 09/15/19 05:06 Carbon Dioxide 23 mmol/L (22-30) 09/15/19 05:06 Anion Gap 7 (5-19) 09/15/19 05:06 BUN 26 mg/dL (7-20) H 09/15/19 05:06 Creatinine 0.79 mg/dL (0.52-1.25) 09/16/19 17:55 Est GFR ( Amer) > 60 (>60) 09/16/19 17:55 Est GFR (MDRD) Non-Af > 60 (>60) 09/16/19 17:55 Glucose 100 mg/dL (75-110) 09/15/19 05:06 POC Glucose 136 mg/dL (70-110) H 09/19/19 12:20 Hemoglobin A1c % 5.5 % (4.7-6.0) 09/15/19 05:06 Lactic Acid 0.9 mmol/L (0.7-2.1) 09/14/19 21:20 Calcium 8.6 mg/dL (8.4-10.2) 09/15/19 05:06 Phosphorus 3.4 mg/dL (2.5-4.5) 09/15/19 05:06 Magnesium 2.1 mg/dL (1.6-2.3) 09/15/19 05:06 Total Bilirubin 0.5 mg/dL (0.2-1.3) 09/14/19 15:25 Direct Bilirubin 0.1 mg/dL (0.0-0.4) 09/14/19 15:25 Neonat Total Bilirubin Not Reportable 09/14/19 15:25 Neonat Direct Bilirubin Not Reportable 09/14/19 15:25 Neonat Indirect Bili Not Reportable 09/14/19 15:25 AST 22 U/L (14-36) 09/14/19 15:25 ALT 12 U/L (<35) 09/14/19 15:25 Alkaline Phosphatase 71 U/L (38-126) 09/14/19 15:25 Troponin I < 0.012 ng/mL 09/14/19 15:25 Total Protein 5.9 g/dL (6.3-8.2) L 09/14/19 15:25 Albumin 3.1 g/dL (3.5-5.0) L 09/14/19 15:25 Time Trough Drawn 1755 09/16/19 17:55 Vancomycin Trough 12.1 ug/mL (5.0-20.0) 09/16/19 17:55 SHABNAM Preparation NEGATIVE (NEGATIVE) 09/16/19 16:21 09/14/19 15:25 Troponin I < 0.012 Impressions: Ankle X-Ray 09/14/19 00:00 IMPRESSION: Circumferential soft tissue edema without underlying acute osseous abnormality. Venous Doppler Study 09/14/19 00:00 IMPRESSION: NO EVIDENCE OF DVT OR SVT IN THE LEFT LEG. Plan Health Concerns: Recurrent cellulitis versus stasis dermatitis and venous insufficiency Plan of Treatment: Complete doxycycline as an outpatient. Follow-up with primary care to investigate further vascular issues in her legs relative to venous insufficiency Goals: Resolution of cellulitis Time Spent: Greater than 30 Minutes Stroke Is this a Stroke Patient?: No Acute Heart Failure - Is this a Heart Failure Patient?: No
[2019-09-19 14:14] VITALS: BP 102/48
[2019-09-19 14:37] LABS: ANTINUCLEAR ANTIBODIES Positive (Negative); SJOGREN'S ANTI-SS-B AB <0.2 AI (0.0-0.9); SJOGREN'S SS-A ANTIBODY >8.0 AI (0.0-0.9); SMITH AB ANA 0.8 AI (0.0-0.9)
[2019-09-19 15:18] LABS: DNA DOUBLE STRAND ANTIBODY ANA 1 IU/mL (0-9)
== END 2019-09-19 15:41 | disposition home health service (06) | DRG 603 ==
LOC: ER 15:03 → EH 17:57 → 5 20:46
PROVIDERS: ADMIT Internal Medicine; ATTEND Hospitalist
DX: L03.116 Cellulitis of left lower limb (principal); I87.2 Venous insufficiency (chronic) (peripheral); E66.01 Morbid (severe) obesity due to excess calories; I48.0 Paroxysmal atrial fibrillation; E11.9 Type 2 diabetes mellitus without complications; G40.909 Epilepsy, unspecified, not intractable, without status epilepticus; I10 Essential (primary) hypertension; I73.00 Raynaud's syndrome without gangrene; J44.9 Chronic obstructive pulmonary disease, unspecified; E78.49 Other hyperlipidemia; Z79.899 Other long term (current) drug therapy; Z95.0 Presence of cardiac pacemaker; Z87.891 Personal history of nicotine dependence; Z88.6 Allergy status to analgesic agent; Z88.3 Allergy status to other anti-infective agents; Z88.2 Allergy status to sulfonamides; Z88.8 Allergy status to other drugs, medicaments and biological substances
CPT/HCPCS: 36415; 80048; 80053; 80202; 82565; 82803; 82962; 83036; 83605; 83735; 84100; 84484; 85025; 85610; 86038; 87040; 87210; 93005; 93010; 93971; 96365; 99285; J0692; J1815; J2543; J3370; J3490; J7030; J7060; J7120